=== PATIENT | male | born 1975 | race Caucasian/White ===

== ENCOUNTER 2019-03-22 13:01 | Emergency (ER) | payer SELFPAY ==
[2019-03-22 13:03] VITALS: BP 119/79; PULSE 95; RESP 15; TEMP 36.7; O2SAT 99; BMI 21.7
--- NOTE | 2019-03-22 13:22 | ED.DCSUM_ITS ---
- ER Visit Summary Date of Service: 03/22/19 Chief Complaint: Atraumatic left bicep pain History of Present Illness: The patient is a 43 M has medical history of asthma. Patient is right-hand dominant. He does a lot of of his arms, carrying and lifting things at work. States about an hour or 2 ago he developed pain in his left distal bicep. No fall no injury nor trauma. No prior history. No swelling or redness. Hurts to flex and extend his left arm. No fever, redness, swelling. No prior surgery to this arm. Physical Examination: Middle-aged male no acute distress vital signs are stable. He is afebrile he does not look septic or toxic. H EENT exam unremarkable. Neck nontender. Lungs clear to auscultation bilaterally. Heart regular rhythm no murmur. Abdomen soft nontender. Extremities he is moving all 4. Neurovascular intact. 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 Equal symmetrical radial pulses. Legs are unremarkable and nonswollen. His left shoulder wrist and hand are nontender neurovascular intact with normal technical product manager strength and radial pulse. There is no swelling of the forearm. He has normal touch sensation in his left hand. He has full flexion-extension the elbow. There is no swelling. No biceps tendon tear. He has tenderness and tenderness over his lateral biceps tendon distally. But he has full range of motion of the shoulder, elbow and wrist and hand. Exam is consistent with a biceps tendinitis. Test Results: None Emergency Department Course and Treatment: Motrin and discharge Treatment Plan: Ice. Rest. Motrin for pain and inflammation. Follow-up if not improving. Disposition: Discharge Impression: Left elbow distal biceps tendonitis This note was generated with [employer] dictation software. It may contain incorrect words, spelling, and punctuation that were not noted in review of the chart prior to signing ED Disposition - Plan for ED Patient: Referrals: Carlos Low DO [Primary Care Provider] -
--- NOTE | 2019-03-22 13:25 | ED.DEP ---
ED Disposition - Plan for ED Patient: Disposition: Home or Assisted Living Instructions: Tendonitis Referrals: Carlos Low DO [Primary Care Provider] - 1 Week if not improving Additional Instructions: Ice to your left elbow. Rest your arm. Motrin for pain and inflammation. 600 mg 3-4 times a day. You need to rest your arm this is inflammation of the biceps tendon and it will get better if rested along with ice and anti-inflammatories.
[2019-03-22] MEDS: Ibuprofen 400 MG Tablet 800 MG PO (13:52)
[2019-03-22 13:53] VITALS: RESP 16
== END 2019-03-22 13:53 | disposition home or self-care (01) ==
LOC: ED 13:29
PROVIDERS: Emergency Provider Emergency Medicine; Family Provider Family Medicine; PCP Family Medicine
DX: M75.22 Bicipital tendinitis, left shoulder (principal); J45.909 Unspecified asthma, uncomplicated
CPT/HCPCS: 99283

== ENCOUNTER 2019-05-06 04:14 | Emergency (ER) | payer SELFPAY ==
[2019-05-06 04:17] VITALS: BP 145/89; PULSE 91; RESP 16; TEMP 36.6; O2SAT 100; BMI 21.9
[2019-05-06 04:52] LABS: Absolute Lymphocyte Count 1.85 X10^3/uL (0.83-4.51); Absolute Neutrophil Count 6.5 X10^3/uL (2.0-7.7); Basophil# 0.04 X10^3/uL; Basophil% 0.4 % (0-1); Eosinophil# 0.21 X10^3/uL; Eosinophils% 2.2 % (0-5); Hemoglobin 16.1 g/dL (13.0-16.5); Lymphocyte # 1.85 X10^3/ul (4.0); Lymphocyte % 19.6 % (19-41); Mean Corp Hgb Conc 33.5 g/dL (32-36); Mean Corpuscular Hgb 29.5 pg (27.0-32.0); Mean Corpuscular Volume 88.1 fL (80-94); Mean Platelet Vol. 9.5 fl (6.2-12.0); Monocyte# 0.77 X10^3/uL; Monocyte% 8.2 % (0-10); NRBC Flagged by Analyzer 0 % (0-5); Neutrophil # 6.54 X10^3/uL (2.7-7.7); Neutrophil % 69.3 % (47-70); Platelet Count 257 K/mm3 (150-450); RBC Distribution Width CV 12.5 % (11.6-14.6); RBC Distribution Width SD 40.4 fl (35.1-43.9); Red Blood Count 5.45 M/mm3 (4.6-6.2); White Blood Count 9.4 K/mm3 (4.4-11.0)
[2019-05-06 05:03] LABS: Alcohol, Blood (Medical)-Serum < 3.0 mg/dL
[2019-05-06 05:10] LABS: AST(SGOT) 19 U/L (15-37); Alanine Aminotransfer ALT/SGPT 32 U/L (16-61); Albumin, Serum 4.1 g/dL (3.2-5.0); Alkaline Phosphatase 76 U/L (45-117); Anion Gap 4 (5-15); BUN 16 mg/dL (7-18); BUN/Creat Ratio 17.6 RATIO (10-20); Calcium,Total 8.8 mg/dL (8.5-10.1); Chloride 107 mmol/L (98-107); Creatinine, Serum 0.91 mg/dL (0.70-1.30); EST Glomerular Filtration Rate 95 mL/min (>60); Est Glom Filt Rate - Afr Amer 116 mL/min (>60); Estimated Creatinine Clearance 92.08 ml/min; Glucose 82 mg/dL (74-106); Potassium 3.5 mmol/L (3.5-5.1); Protein, Total 8.1 g/dL (6.4-8.2); Sodium Level 138 mmol/L (136-145)
[2019-05-06 05:15] VITALS: RESP 16
--- NOTE | 2019-05-06 05:17 | ED.RN ---
CALLED [facility]
--- NOTE | 2019-05-06 05:23 | ED.RN ---
JAMES CALLED AND IS ON THE WAY FROM [facility]
--- NOTE | 2019-05-06 05:44 | ED.RN ---
[facility] IN THE EMERGENCY ROOM
--- NOTE | 2019-05-06 05:45 | ED.VISSUMM ---
- ER Visit Summary Date of Service: 05/06/19 Chief Complaint: Suicidal ideation History of Present Illness: The patient is a 43 M who was brought to the ED by law enforcement. Patient has increasing depression symptoms. He feels like he would rather be . He says I wish God would take me. No plan or attempt. History of depression and asthma. He is not currently on any medications for depression and does not see a counselor or psychiatrist. Denies any medical complaints. Physical Examination: Afebrile and vital signs unremarkable. Poor eye contact and flat affect. Tearful. Heart regular. Lungs clear. Abdomen soft. Skin appears normal. Test Results: CBC, CMP, alcohol unremarkable. Tox screen is pending. Emergency Department Course and Treatment: Patient had a pink slip by law enforcement. He had suicide precautions here. Medical clearance testing was unremarkable. Tox screen is still pending. Patient will need psychiatric care and crisis was notified. Further disposition is pending. Treatment Plan: As above Disposition: Transfer pending Impression: 1. Suicidal ideation This note was generated with [employer] dictation software. It may contain incorrect words, spelling, and punctuation that were not noted in review of the chart prior to signing ED Disposition - Plan for ED Patient: Referrals: Tesfaye Gutierrez MD [Primary Care Provider] -
[2019-05-06 05:57] LABS: Amphetamine Urine VISTA POSITIVE (<1000 ng/mL); Barbiturate Urine VISTA NEGATIVE (< 200 ng/mL); Benzodiazepine Urine VISTA NEGATIVE (< 200 ng/mL); Cocaine Urine VISTA NEGATIVE (< 300 ng/mL); Ecstacy Urine VISTA NEGATIVE (< 500 ng/mL); Methadone Urine VISTA NEGATIVE (< 300 ng/mL); PCP Urine VISTA NEGATIVE (< 25 ng/mL); THC Urine VISTA POSITIVE (< 50 ng/mL); Vista UDS pH Range 6
[2019-05-06 06:00] VITALS: RESP 16
--- NOTE | 2019-05-06 07:06 | ED.DEP ---
ED Disposition - Plan for ED Patient: Instructions: CONTRACT, No Harm Referrals: Tesfaye Gutierrez MD [Primary Care Provider] -
== END 2019-05-06 07:18 | disposition home or self-care (01) ==
PROVIDERS: Emergency Provider Emergency Medicine; PCP Family Medicine
DX: R45.851 Suicidal ideations (principal); F32.9 Major depressive disorder, single episode, unspecified; J45.909 Unspecified asthma, uncomplicated
CPT/HCPCS: 36415; 80053; 80307; 80320; 85025; 99283; G0480

== ENCOUNTER 2019-05-06 09:27 | Emergency (ER) | payer SELFPAY ==
[2019-05-06] VITALS (17 sets, daily range): BP systolic 101–133; BP diastolic 76–108; PULSE 73–116; RESP 14–24; TEMP 36.6; O2SAT 96–99; BMI 21.9; BMI 25.0
--- NOTE | 2019-05-06 09:46 | ED.VISSUMM ---
- ER Visit Summary Date of Service: 05/06/19 Chief Complaint: Depressed and suicidal History of Present Illness: The patient is a 43 M patient denies any past medical or surgical history. States he seen in the emergency department earlier this morning. Had a work-up done for suicidal ideation. Was seen by the counseling center and our ER physician. It was determined that he was safe to contract for safety and was allowed to go home with close follow-up. Basically went home he and his significant other had an argument. She wanted him to leave her residence. He became emotional she like to bring him back to the emergency department and he threatened to jump out of the car. Police were called and he was brought in by the Police Department and now pink slipped. He denies having any prior psychiatric diagnoses. He denies being under any psychiatric care currently. He does have a history of both marijuana and meth abuse and last used methamphetamines 2 days ago. Physical Examination: Middle-aged man lying in bed vital signs are stable afebrile. He is tearful. Police are with him in the room. H EENT exam unremarkable. Neck nontender. Lungs has a prolonged expiratory phase and expiratory wheezing bilaterally. No rales nor rhonchi.. Heart regular rhythm rate about 115 no murmur. Abdomen soft nontender normal bowel sounds no peritoneal signs. Patient is moving all 4 extremities. No trauma or self-inflicted injuries. Back nontender. Skin no abscesses. No rashes. Neurologically is awake and alert with no focal motor deficits. Test Results: I reviewed his labs from earlier this morning. They are unremarkable except for positive tox screen. 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 Patient also has expiratory wheezing and will be treated with albuterol and DuoNeb aerosols along with receiving p.o. prednisone. Treatment Plan: [] Disposition: Transfer to a psychiatric facility Impression: Depression Suicidal ideation Acute asthma flare History of marijuana and methamphetamine abuse This note was generated with [employer] dictation software. It may contain incorrect words, spelling, and punctuation that were not noted in review of the chart prior to signing ED Disposition - Plan for ED Patient: Referrals: Tesfaye Gutierrez MD [Primary Care Provider] -
[2019-05-06] MEDS: predniSONE 20 MG Tablet 40 MG PO (10:04)
[2019-05-06] MEDS: Ipratropium/Albuterol Sulfate 3 ML AMPUL.NEB INHALATION (10:05)
[2019-05-06] MEDS: Albuterol 2.5 MG/3 ML VIAL.NEB. INHALATION ×2 (10:09→23:01)
--- NOTE | 2019-05-06 10:19 | CM.ED ---
Social Work Consult: Suicidal Informant: Dr. Balderrama. Patient is self-pay, confirmed by registration, unable to facilitate placement. Dr. Balderrama is recommending placement for patient due to second visit this day due mental health reasons. Crisis did assess patient earlier this morning and patient did contract for safety at that time. Patient noted to be homeless but was staying with girlfriend. Telephone call to An[facility]. Updated Ange on patient status and recommendation for placement for patient. [facility] also aware that patient is self-pay. Crisis to complete placement. Medical team updated and agreeable to plan. Mariah Estrella MSW, KAJAL
[2019-05-06] MEDS: Ziprasidone IM 20 MG/ML VIAL IM (10:59)
--- NOTE | 2019-05-06 11:02 | NURSING ---
PT BECAME UPSET, YELLING OUT AFTER BEING TOLD HE WOULD BE PLACED IN A PSYCH FACILITY. PT CALLING EX-GIRLFRIEND AND ARGUING SO PHONE REMOVED AT THIS TIME SO PT ABLE TO CALM DOWN. SITTER AND SECURITY AT BS. PT NOT UNCOOPERATIVE, BUT TEARFUL AND VERBALIZING DISPLEASURE WITH SITUATION.
--- NOTE | 2019-05-06 13:50 | EKG12_ITS ---
Test Reason : MENTAL HEALTH Blood Pressure : / mmHG Vent. Rate : 073 BPM Atrial Rate : 073 BPM P-R Int : 152 ms QRS Dur : 092 ms QT Int : 374 ms P-R-T Axes : 075 050 070 degrees QTc Int : 412 ms Normal sinus rhythm Normal ECG Confirmed by BERNARDO GRIFFITH, COURTNEY ([id number]), staff editor TAYE HAYWOOD ([id number]) on 05/09/2019 12:26:30 PM Referred By: ADRIAN Confirmed By:COURTNEY CHANG MD
[2019-05-07] VITALS (15 sets, daily range): BP systolic 114–137; BP diastolic 74–88; PULSE 64–91; RESP 14–24; O2SAT 93–99
[2019-05-07] MEDS: predniSONE 20 MG Tablet 40 MG PO (09:04)
[2019-05-07] MEDS: Ipratropium/Albuterol Sulfate 3 ML AMPUL.NEB INHALATION (09:05)
--- NOTE | 2019-05-07 09:38 | ED.RN ---
KATHLEEN COSTELLO WITH CRISIS PT IS ACCEPTED AT [facility] AND SHOULD HAVE A BED SOME TIME TODAY
--- NOTE | 2019-05-07 12:02 | ED.RN ---
SPOKE WITH PRAVIN AT [facility]; SHE STATED THAT NOTHING HAS CHANGED. WE ARE STILL WAITING ON A BED
--- NOTE | 2019-05-07 12:36 | ED.RN ---
KATHLEEN COSTELLO WITH [facility]ISIS; PT HAS A BED WITH [facility] BUT THEY ARE WAITING ON A PT TO ARRIVE THAT WAS SUPPOSE TO BE THERE AT 0900. SOON THEY LOCATED/RECEIVE PT THEY WILL LET US KNOW THAT IT IS OK TO SENT THE PT.
--- NOTE | 2019-05-07 14:32 | ED.RN ---
SPOKE WITH PRAVIN AGAIN SHE SAID SHE TALKED TO [facility] ABOUT 15 MINUTES AGO AND THEY HAVE NOT RESOLVED ISSUE, STATED IN PREVIOUS NOTES
== END 2019-05-07 18:24 ==
PROVIDERS: Emergency Provider Emergency Medicine; PCP Family Medicine
DX: F32.9 Major depressive disorder, single episode, unspecified (principal); R45.851 Suicidal ideations; F15.10 Other stimulant abuse, uncomplicated; J45.909 Unspecified asthma, uncomplicated
CPT/HCPCS: 93005; 94640; 96372; 99283; J3486

== ENCOUNTER 2021-02-10 21:12 | Inpatient (IN) | payer OTHER, SELFPAY ==
[2021-02-10] VITALS (13 sets, daily range): BP systolic 100–192; BP diastolic 68–159; PULSE 105–167; RESP 10–41; TEMP 36.2–37.2; O2SAT 96–100; BMI 21.4
[2021-02-10] MEDS: Etomidate 20 MG/10 ML Vial IV (21:16)
--- NOTE | 2021-02-10 21:20 | RAD_ITS ---
STUDY: X-RAY CHEST REASON FOR EXAM: Male, 45 years old. Endotracheal tube TECHNIQUE: AP COMPARISON: Subsequent chest radiographs. FINDINGS: Endotracheal tube tip high at the level of T2 (subsequent radiographs show it has been advanced). Enteric tube extends into the stomach and off the film. No apparent pneumothorax, pneumonia, pleural effusion, or edema. Cardiac silhouette, rich and mediastinal contours are within normal limits. No acute osseous abnormality. No evidence of free air under the diaphragm. RAD/Chest 1 View (Portable) IMPRESSION: Endotracheal tube tip high at the level of T2 (subsequent radiographs show it has been advanced). Enteric tube extends into the stomach and off the film. Electronically Signed: Juanito Sexton MD at 22:50 EDT Tel , Service support ,
--- NOTE | 2021-02-10 21:22 | EKG12_ITS ---
Test Reason : REPEAT Blood Pressure : / mmHG Vent. Rate : 118 BPM Atrial Rate : 118 BPM P-R Int : 154 ms QRS Dur : 092 ms QT Int : 336 ms P-R-T Axes : 085 091 077 degrees QTc Int : 470 ms Sinus tachycardia Low voltage QRS (Limb Leads) Poor R wave progression Confirmed by SOILA GRIFFITH, TASIA ([id number]), film or videotape editor GUILLERMO HESS ([id number]) on 02/12/2021 9:47:44 AM Referred By: KARINA Confirmed By:TASIA CM MD
--- NOTE | 2021-02-10 21:23 | EKG12_ITS ---
Test Reason : CODE Blood Pressure : / mmHG Vent. Rate : 153 BPM Atrial Rate : 082 BPM P-R Int : 000 ms QRS Dur : 092 ms QT Int : 276 ms P-R-T Axes : 000 096 067 degrees QTc Int : 440 ms Atrial fibrillation Low voltage QRS (Limb Leads) Poor R wave progression Abnormal ECG Confirmed by SOILA GRIFFITH, TASIA ([id number]), copy editor GUILLERMO HESS ([id number]) on 02/12/2021 9:50:29 AM Referred By: KARINA Confirmed By:TASIA CM MD
[2021-02-10] MEDS: Propofol 200 MG/20 ML Vial 50 MG IV BOLUS (21:25)
[2021-02-10 21:30] LABS: Absolute Lymphocyte Count 5.66 X10^3/uL (0.83-4.51); Absolute Neutrophil Count 5.7 X10^3/uL (2.0-7.7); Basophil# 0.02 X10^3/uL; Basophil% 0.2 % (0-1); Eosinophil# 0.39 X10^3/uL; Hematocrit 48.5 % (40-54); Hemoglobin 15.2 g/dL (13.0-16.5); Lymphocyte # 5.66 X10^3/ul (0.83-4.51); Lymphocyte % 43.5 % (19-41); Mean Corp Hgb Conc 31.3 g/dL (32-36); Mean Corpuscular Hgb 29.9 pg (27.0-32.0); Mean Corpuscular Volume 95.5 fL (80-94); Mean Platelet Vol. 10.5 fl (6.2-12.0); Monocyte# 1.22 X10^3/uL; Monocyte% 9.4 % (0-10); NRBC Flagged by Analyzer 0 % (0-5); Neutrophil % 43.7 % (47-70); POSITIVE DIFFERENTIAL YES; POSITIVE MORPHOLOGY YES; Platelet Count 285 K/mm3 (150-450); RBC Distribution Width CV 13.2 % (11.6-14.6); RBC Distribution Width SD 46.5 fl (35.1-43.9); Red Blood Count 5.08 M/mm3 (4.6-6.2)
[2021-02-10] MEDS: Propofol 10MG/Ml 1,000 MG/100 ML Bottle 3.7 MG CONT INF (21:33)
[2021-02-10 21:38] LABS: Differential Indicated SCAN CRITERIA MET
[2021-02-10] MEDS: Propofol 200 MG/20 ML Vial 60 MG IV BOLUS (21:46)
[2021-02-10 21:47] LABS: International Normalized Ratio 1.2; Partial Thromboplast Time 29.2 Seconds (24.1-36.2); Prothrombin Time (Protime)PT. 14.9 SECONDS (11.7-14.9)
[2021-02-10] MEDS: LORazepam 2 MG/ML Syringe IV ×4 (21:47→23:45)
[2021-02-10] MEDS: Albuterol 2.5 MG/3 ML VIAL.NEB. INHALATION ×3 (21:48)
[2021-02-10] MEDS: MethylPREDNISolone 125 MG/2 ML Vial IV (21:52)
[2021-02-10 21:53] LABS: AST(SGOT) 30 U/L (15-37); Alanine Aminotransfer ALT/SGPT 29 U/L (16-61); Albumin, Serum 3.8 g/dL (3.2-5.0); Alkaline Phosphatase 76 U/L (45-117); Anion Gap 16 (5-15); BUN 13 mg/dL (7-18); BUN/Creat Ratio 10.2 RATIO (10-20); Bilirubin, Direct 0.13 mg/dL (0.00-0.30); Calcium,Total 8.8 mg/dL (8.5-10.1); Chloride 108 mmol/L (98-107); Creatinine, Serum 1.27 mg/dL (0.70-1.30); EST Glomerular Filtration Rate 65 mL/min (>60); Est Glom Filt Rate - Afr Amer 78 mL/min (>60); Estimated Creatinine Clearance 63.16 ml/min; Glucose 177 mg/dL (74-106); Potassium 4.3 mmol/L (3.5-5.1); Protein, Total 7.8 g/dL (6.4-8.2); Sodium Level 145 mmol/L (136-145); Troponin-I HS 4 pg/mL (3.0-78.0)
--- NOTE | 2021-02-10 22:02 | RAD_ITS ---
INDICATION: ett tube EXAMINATION/TECHNIQUE: X-RAY - XR Chest 1 View COMPARISON: 02/10/2021. FINDINGS: The lungs are clear. The cardiomediastinal silhouette is unremarkable. Slight interval advancement of endotracheal tube with tip now 8 cm above the sona. Unchanged position of NG tube. No pleural effusion or pneumothorax. No acute osseous abnormalities. RAD/Chest 1 View (Portable) IMPRESSION: Slight interval advancement of endotracheal tube with tip now 8 cm above the sona. Otherwise stable exam. Electronically Signed: Polo Cunningham MD at 22:34 EDT Tel , Service support ,
--- NOTE | 2021-02-10 22:04 | EDS_ITS ---
HPI History of Present Illness Chief Complaint: Shortness of Breath Informant: EMS Onset/Context/Timing Onset: Today Narrative Narrative: Patient presents via EMS following a respiratory arrest. EMS was called for asthma exacerbation. On arrival they found the patient sitting outside on a bench in respiratory distress. They placed a nonrebreather and the patient slumped forward falling to the ground. No pulse was found and patient was noted to be in asystole. CPR was started. They began bagging the patient with an Ambu bag. After just a minute or so patient regained a pulse. They continued bagging with Ambu bag in route to the hospital. EMS states that bystanders note the patient reportedly gave Covid to his sister although patient never been tested. They do not know much of his medical history. PFSH PFS Medical History Asthma Medical History unable to obtain Home Medications albuterol sulfate 1 - 2 puff INHALATION Q4H PRN PRN 03/22/19 [History Last Taken Unknown] Allergy/AdvReac Type Severity Reaction Status Date / Time cat dander Allergy Itching Verified 02/10/21 21:36 Surgical History unable to obtain Social History Smoking Status: Current every day smoker tobacco type: cigarettes ROS ROS ED Review of Systems ROS Unobtainable: due to endotracheal tube EXAM Physical Exam Const Vital Signs: 02/10/21 21:13 02/10/21 21:20 02/10/21 21:21 Temperature 97.2 F L 97.2 F L Temperature Source Temporal Temporal Pulse Rate 137 H 137 H Respiratory Rate 12 12 Respiratory Effort Mechanically Ventilated Blood Pressure 189/109 H 189/109 H Blood Pressure Mean 135 135 Pulse Ox 98 98 Oxygen Delivery Method Ambu-Bag Ambu-Bag Fraction of Inspired Oxygen (FIO2) 02/10/21 21:30 02/10/21 21:50 02/10/21 22:13 Temperature Temperature Source Pulse Rate 151 H 167 H 167 H Respiratory Rate 26 H 20 H 27 H Respiratory Effort Blood Pressure 192/159 H 100/68 Blood Pressure Mean 170 78 Pulse Ox 98 99 100 Oxygen Delivery Method Mechanical Ventilator Mechanical Ventilator Fraction of Inspired Oxygen (FIO2) 60 02/10/21 22:23 02/10/21 22:34 02/10/21 22:35 Temperature Temperature Source Pulse Rate 167 H 152 H Respiratory Rate 41 H 26 H Respiratory Effort Blood Pressure 125/83 H Blood Pressure Mean 97 Pulse Ox 100 100 Oxygen Delivery Method Fraction of Inspired Oxygen (FIO2) 50 50 02/10/21 22:57 Temperature 98.1 F Temperature Source Core Pulse Rate 112 H Respiratory Rate 25 H Respiratory Effort Blood Pressure 120/83 H Blood Pressure Mean 95 Pulse Ox 100 Oxygen Delivery Method Mechanical Ventilator Fraction of Inspired Oxygen (FIO2) Positive well nourished and well developed General Appearance ED: well developed HEENT Reports moist mucous membranes Negative for trauma Neck supple Chest Wall inspection of chest normal and palpation of chest normal Resp Resp Narrative: Decreased air movement throughout. Cardio Rate: tachycardic Extremity normal to inspection Neuro Neuro Narrative: Unresponsive on arrival. Some movement noted to the left arm. Skin no rashes or lesions noted MDM MDM MDM Narrative Medical decision making narrative: Patient was intubated on arrival to the emergency room. Vocal cords were visualized using glide scope with passage of a 7.5 ET tube. Patient had been given etomidate and succinylcholine for intubation. EKG, chest x-ray, lab work all ordered. Lab Data Attestation: I reviewed the patient's lab results. Labs: Laboratory Results - last 24 hr 02/10/21 02/10/21 02/10/21 21:15 21:15 21:15 WBC 13.0 H RBC 5.08 Hgb 15.2 Hct 48.5 MCV 95.5 H MCH 29.9 MCHC 31.3 L RDW Std Deviation 46.5 H RDW Coeff of Gisela 13.2 Plt Count 285 MPV 10.5 Immature Gran % (Auto) 0.200 Neut % (Auto) 43.7 L Lymph % (Auto) 43.5 H [place] % (Auto) 9.4 Eos % (Auto) 3.0 Baso % (Auto) 0.2 Absolute Neuts (auto) 5.7 Absolute Lymphs (auto) 5.66 H Nucleated RBC % 0 Differential Comment SCANNED PT 14.9 INR 1.2 APTT 29.2 Sodium 145 Potassium 4.3 Chloride 108 H Carbon Dioxide 21.0 Anion Gap 16 H BUN 13 Creatinine 1.27 Estim Creat Clear Calc 63.16 Est GFR (MDRD) Af Amer 78 Est GFR (MDRD) Non-Af 65 BUN/Creatinine Ratio 10.2 Glucose 177 H Lactic Acid Calcium 8.8 Total Bilirubin 0.40 Direct Bilirubin 0.13 AST 30 ALT 29 Alkaline Phosphatase 76 Troponin I High Sens 4 Total Protein 7.8 Albumin 3.8 Globulin 4.0 Urine Opiates Screen Urine Methadone Screen Ur Barbiturates Screen Ur Phencyclidine Scrn Ur Amphetamines Screen U Methamphetamin-MDMA U Benzodiazepines Scrn Urine Cocaine Screen U Cannabinoids Screen Ur Drug Screen Comment Ethyl Alcohol 02/10/21 02/10/21 02/10/21 21:15 21:15 22:12 WBC RBC Hgb Hct MCV MCH MCHC RDW Std Deviation RDW Coeff of Gisela Plt Count MPV Immature Gran % (Auto) Neut % (Auto) Lymph % (Auto) [place] % (Auto) Eos % (Auto) Baso % (Auto) Absolute Neuts (auto) Absolute Lymphs (auto) Nucleated RBC % Differential Comment PT INR APTT Sodium Potassium Chloride Carbon Dioxide Anion Gap BUN Creatinine Estim Creat Clear Calc Est GFR (MDRD) Af Amer Est GFR (MDRD) Non-Af BUN/Creatinine Ratio Glucose Lactic Acid 15.0 H* Calcium Total Bilirubin Direct Bilirubin AST ALT Alkaline Phosphatase Troponin I High Sens Total Protein Albumin Globulin Urine Opiates Screen NEGATIVE Urine Methadone Screen NEGATIVE Ur Barbiturates Screen NEGATIVE Ur Phencyclidine Scrn NEGATIVE Ur Amphetamines Screen NEGATIVE U Methamphetamin-MDMA NEGATIVE U Benzodiazepines Scrn NEGATIVE Urine Cocaine Screen NEGATIVE U Cannabinoids Screen POSITIVE H Ur Drug Screen Comment Ethyl Alcohol 5.0 ABG Data ABG results: ABG 02/10/21 21:20 Specimen Type ART Sample Site L Radial pH 7.20 L Bicarbonate Actual 24.0 Total CO2 26 Base Excess -4 L O2 Saturation 100 H O2 % 60 ABG pCO2 61.8 H ABG pO2 301 H* Dagoberto Test Positive Respiration Rate 10 O2 Delivery Device Adult Vent Vent Mode AC Tidal Volume 400 POC PEEP 5 Crit Call To/Read Back Yes Blood Gas Notified Whom VIEYRA Radiography Diagnostic Testing: Clinical Impression(s) from Imaging Studies Chest X-Ray 02/10/21 21:20 IMPRESSION: Endotracheal tube tip high at the level of T2 (subsequent radiographs show it has been advanced). Enteric tube extends into the stomach and off the film. Electronically Signed: Juanito Sexton MD at 22:50 EDT Tel , Service support , Chest X-Ray 02/10/21 22:02 IMPRESSION: Slight interval advancement of endotracheal tube with tip now 8 cm above the sona. Otherwise stable exam. Electronically Signed: Polo Cunningham MD at 22:34 EDT Tel , Service support , Chest X-Ray 02/10/21 22:08 IMPRESSION: The endotracheal tube tip is more distal in the trachea, now in the mid thoracic trachea about 6 cm above the sona. Electronically Signed: Juanito Sexton MD at 22:52 EDT Tel , Service support , EKG Initial EKG: Attestation: I personally reviewed and interpreted this EKG as follows: Interpretation: Atrial Fibrillation (Atrial fibrillation at 153. No significant ST change.) Follow-up EKG: Attestation: I personally reviewed and interpreted this EKG as follows: Interpretation: Sinus Tachycardia (Sinus tach at 118 with no acute ischemia.) Treatment and Re-Evaluation Comments:: Patient was initially placed on propofol drip for sedation. 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 In light of this, sedation will be switched to Versed and fentanyl. Initial chest x-ray shows ET tube to be high in the trachea. This is advanced and repeat x-rays reviewed by myself. ET tube appears to be in good position on final x-ray. No evidence of pneumo thorax or infiltrate. Blood work reviewed and reveals a white count of 13. Coags normal. Chemistry studies remarkable only for glucose of 177. LFTs unremarkable. Troponin normal at 4. Lactic acid is 15. Patient's heart rate is currently in the 1 teens. He does have new onset atrial fibrillation noted. I will speak with hospitalist regarding admission. Addendum: Repeat EKG obtained at this time reveals sinus tachycardia at 118. No acute ST change. Critical Care Time Critical Care Time: Yes Critical care time (excluding procedures): 30-74 minutes (45 minutes), Including time spent:, Discussing w/Consultants, Arranging Admission or Transfer and Performing Direct Patient Care at Bedside Discharge Plan Dx/Rx/DC Orders Clinical Impression: Respiratory arrest, New onset a-fib, Lactic acidosis Disposition Disposition: Acute Care Hospital [facility]
--- NOTE | 2021-02-10 22:08 | RAD_ITS ---
STUDY: X-RAY CHEST REASON FOR EXAM: Male, 45 years old. ETT TECHNIQUE: AP COMPARISON: Earlier same date FINDINGS: The endotracheal tube tip is more distal in the trachea, now in the mid thoracic trachea about 6 cm above the sona. Lung bases not included on this study. No apparent pneumothorax or other acute interval change. The enteric tube extends inferiorly off the film. RAD/Chest 1 View (Portable) IMPRESSION: The endotracheal tube tip is more distal in the trachea, now in the mid thoracic trachea about 6 cm above the sona. Electronically Signed: Juanito Sexton MD at 22:52 EDT Tel , Service support ,
--- NOTE | 2021-02-10 22:10 | ED.RN ---
Chest xray for confirmation of tube placement, tube advanced to 26 at lip
[2021-02-10 22:12] LABS: Differential Comment SCANNED
[2021-02-10 22:25] LABS: Allen Test Positive; Base Excess -4 mmol/L (-2 to +2); Blood Gas Specimen Type ART; FI02 60; Mode AC; O2 Delivery Device Adult Vent; PEEP 5; PO2 301 mmHG (75-100); RR 10; SITE L Radial; SO2 100 % (95-99); Total Carbon Dioxide 26 mmol/L; Vt 400; pCO2 61.8 mmHg (35-45)
[2021-02-10 22:44] LABS: Amphetamine Urine VISTA NEGATIVE (<1000 ng/mL); Barbiturate Urine VISTA NEGATIVE (< 200 ng/mL); Benzodiazepine Urine VISTA NEGATIVE (< 200 ng/mL); Cocaine Urine VISTA NEGATIVE (< 300 ng/mL); Ecstacy Urine VISTA NEGATIVE (< 500 ng/mL); Methadone Urine VISTA NEGATIVE (< 300 ng/mL); PCP Urine VISTA NEGATIVE (< 25 ng/mL); THC Urine VISTA POSITIVE (< 50 ng/mL); Vista UDS pH Range 5
--- NOTE | 2021-02-10 23:41 | HP.PCM.HOS_ITS ---
HPI - General General Date of Admission: 02/10/21 HPI Narrative History was taken for emergent department of that patient was on mechanical ventilation; sedated but agitated. DARIEN PIERRE, is a 45 M with a significant history of asthma who presents to the emergency department with cardiac and respiratory arrest. Reportedly EMS was called because patient was having shortness of breath. EMS placed a nonrebreather mask and then patient slumped over. Patient lost his pulse and respiration and patient was found to be in asystole. CPR was done for about 2 minutes and ROSC was achieved. At emergent department patient was intubated. Initially patient was placed on propofol but reportedly patient was agitated while on propofol so he was placed on Versed and fentanyl. Reportedly bystanders reported that patient recently had giving his sister Covid. However rapid Covid antigen at the emergency department was negative. Emergency department doctor reportedly called an independent living facility where patient lives. The independent living facility did not have any medical information on patient. [facility] Medical History Asthma Medical History unable to obtain Home Medications albuterol sulfate 1 - 2 puff INHALATION Q4H PRN PRN 03/22/19 [History Last Taken Unknown] Allergy/AdvReac Type Severity Reaction Status Date / Time cat dander Allergy Itching Verified 02/10/21 21:36 Family History unable to obtain unable to obtain Surgical History unable to obtain unable to obtain Social History Smoking Status: Current every day smoker tobacco type: cigarettes ROS Review of Systems ROS Unobtainable: due to encephalopathy Vital Signs Vital Signs Vital Signs: 02/10/21 21:13 02/10/21 21:20 02/10/21 21:21 Temperature 97.2 F L 97.2 F L Temperature Source Temporal Temporal Pulse Rate 137 H 137 H Respiratory Rate 12 12 Respiratory Effort Mechanically Ventilated Blood Pressure 189/109 H 189/109 H Blood Pressure Mean 135 135 Pulse Ox 98 98 Oxygen Delivery Method Ambu-Bag Ambu-Bag Fraction of Inspired Oxygen (FIO2) 02/10/21 21:30 02/10/21 21:50 02/10/21 22:13 Temperature Temperature Source Pulse Rate 151 H 167 H 167 H Respiratory Rate 26 H 20 H 27 H Respiratory Effort Blood Pressure 192/159 H 100/68 Blood Pressure Mean 170 78 Pulse Ox 98 99 100 Oxygen Delivery Method Mechanical Ventilator Mechanical Ventilator Fraction of Inspired Oxygen (FIO2) 60 02/10/21 22:20 02/10/21 22:23 02/10/21 22:34 Temperature 97.8 F Temperature Source Core Pulse Rate 159 H 167 H Respiratory Rate 31 H 41 H Respiratory Effort Blood Pressure 115/92 H 125/83 H Blood Pressure Mean 99 97 Pulse Ox 100 100 Oxygen Delivery Method Mechanical Ventilator Fraction of Inspired Oxygen (FIO2) 50 02/10/21 22:35 02/10/21 22:45 02/10/21 22:57 Temperature 98.1 F Temperature Source Core Pulse Rate 152 H 150 H 112 H Respiratory Rate 26 H 36 H 25 H Respiratory Effort Blood Pressure 152/89 H 120/83 H Blood Pressure Mean 110 95 Pulse Ox 100 100 100 Oxygen Delivery Method Mechanical Ventilator Mechanical Ventilator Fraction of Inspired Oxygen (FIO2) 50 02/10/21 23:15 02/10/21 23:30 Temperature Temperature Source Pulse Rate 109 H 108 H Respiratory Rate 22 H 26 H Respiratory Effort Blood Pressure 119/75 137/97 H Blood Pressure Mean 89 110 Pulse Ox 100 100 Oxygen Delivery Method Mechanical Ventilator Mechanical Ventilator Fraction of Inspired Oxygen (FIO2) Weight Weight: 62.1 kg Body Mass Index (BMI) 21.4 Physical Exam Narrative Physical exam: General: Well-nourished, well-developed. Head: Normocephalic, atraumatic, no tenderness Eyes: PERRLA ENT, no trauma, moist mucous membranes, endotracheal tube in place. Neck: Nontender, full range of motion, no spinal tenderness, deformities, step- off CVS: Tachycardia. S1-S2 present. No murmur, gallop or rub. Respiratory : Tachypnea clear to auscultation bilaterally, chest wall nontender, no wheezing Abdomen: Soft, nontender, nondistended, normal bowel sounds, no masses : Deferred Back: Nontender, no CVA tenderness, no midline spinal tenderness, deformities, step-offs Extremities: Nontender full range of motion, no trauma Skin: Normal color, no trauma, abrasions Neuro: Intubated with sedation on mechanical ventilation the patient is agitated. Psychiatry: Intubated with sedation on mechanical ventilation the patient is agitated. Results Lab / Micro Data Result Diagrams: 02/10/21 21:15 02/10/21 21:15 Labs: Laboratory Results - last 24 hr 02/10/21 21:15: WBC 13.0 H, RBC 5.08, Hgb 15.2, Hct 48.5, MCV 95.5 H, MCH 29.9, MCHC 31.3 L, RDW Std Deviation 46.5 H, RDW Coeff of Gisela 13.2, Plt Count 285, MPV 10.5, Immature Gran % (Auto) 0.200, Neut % (Auto) 43.7 L, Lymph % (Auto) 43.5 H, Bates % (Auto) 9.4, Eos % (Auto) 3.0, Baso % (Auto) 0.2, Absolute Neuts (auto) 5.7, Absolute Lymphs (auto) 5.66 H, Nucleated RBC % 0, Differential Comment SCANNED 02/10/21 21:15: PT 14.9, INR 1.2, APTT 29.2 02/10/21 21:15: Sodium 145, Potassium 4.3, Chloride 108 H, Carbon Dioxide 21.0, Anion Gap 16 H, BUN 13, Creatinine 1.27, Estim Creat Clear Calc 63.16, Est GFR (MDRD) Af Amer 78, Est GFR (MDRD) Non-Af 65, BUN/Creatinine Ratio 10.2, Glucose 177 H, Calcium 8.8, Total Bilirubin 0.40, Direct Bilirubin 0.13, AST 30, ALT 29, Alkaline Phosphatase 76, Troponin I High Sens 4, Total Protein 7.8, Albumin 3.8, Globulin 4.0 02/10/21 21:15: Ethyl Alcohol 5.0 02/10/21 21:15: Lactic Acid 15.0 H* 02/10/21 22:12: Urine Opiates Screen NEGATIVE, Urine Methadone Screen NEGATIVE, Ur Barbiturates Screen NEGATIVE, Ur Phencyclidine Scrn NEGATIVE, Ur Amphetamines Screen NEGATIVE, U Methamphetamin-MDMA NEGATIVE, U Benzodiazepines Scrn NEGATIVE, Urine Cocaine Screen NEGATIVE, U Cannabinoids Screen POSITIVE H, Ur Drug Screen Comment Micro: Microbiology 02/10/21 21:36 Nasal Secretion SARS-CoV-2 Antigen (Rapid) - Final ABG Data ABG results: ABG 02/10/21 21:20 Specimen Type ART Sample Site L Radial pH 7.20 L Bicarbonate Actual 24.0 Total CO2 26 Base Excess -4 L O2 Saturation 100 H O2 % 60 ABG pCO2 61.8 H ABG pO2 301 H* Dagoberto Test Positive Respiration Rate 10 O2 Delivery Device Adult Vent Vent Mode AC Tidal Volume 400 POC PEEP 5 Crit Call To/Read Back Yes Blood Gas Notified Whom JARRELL Radiology Impression Chest X-Ray 02/10/21 21:20 IMPRESSION: Endotracheal tube tip high at the level of T2 (subsequent radiographs show it has been advanced). Enteric tube extends into the stomach and off the film. Electronically Signed: Juanito Sexton MD at 22:50 EDT Tel , Service support , Chest X-Ray 02/10/21 22:02 IMPRESSION: Slight interval advancement of endotracheal tube with tip now 8 cm above the sona. Otherwise stable exam. Electronically Signed: Polo Cunningham MD at 22:34 EDT Tel , Service support , Chest X-Ray 02/10/21 22:08 IMPRESSION: The endotracheal tube tip is more distal in the trachea, now in the mid thoracic trachea about 6 cm above the sona. Electronically Signed: Juanito Sexton MD at 22:52 EDT Tel , Service support , Assessment & Plan Assessment/Plan (1) Respiratory arrest: (2) New onset a-fib: (3) Lactic acidosis: PLAN: Acute respiratory failure. Chest x-ray independently interpreted did not show any acute cardiopulmonary process. I agree with radiologist interpretation. Reportedly patient was unable to breathe and required airway protection and ventilation. Continue mechanical ventilation and admit patient to the intensive care unit. Solu-Medrol [id number]. Scheduled DuoNeb and as needed ordered. Check magnesium and phosphorus. Review of CBC showed white count of 13. ABG reviewed showed a pH of 7.2. PCO2 of 16.8. Cannot rule out status asthmaticus. However with asthma alkalemia is more common. Toxicology was positive only for cannabinoids. Trend CBC and BMP. Storage Facility Rental Clerk consult. Lactic acidosis Likely secondary to hypoxia Trend. New diagnosis A. fib. Patient found to be in A. fib with rapid ventricular response. EKG showed A. fib with ventricular rate of 158. Follow-up EKG shows sinus tach with rate of 118. Her medical information so far [id number] 2 score is 0 We will check TSH. Potassium is 4.3. Check magnesium. Trend BMP. DVT prophylaxis: Subcutaneous Lovenox ordered. Charges/Coding Visit Charges Inpatient E&M: 94534 Init Hosp L3
[2021-02-11] VITALS (44 sets, daily range): BP systolic 88–132; BP diastolic 59–73; PULSE 81–132; RESP 10–22; TEMP 36.4–37.4; O2SAT 91–100; BMI 21.7
[2021-02-11 00:25] LABS: Magnesium 3.1 mg/dL (1.6-2.6); Phosphorus 8.6 mg/dL (2.5-4.9)
[2021-02-11 00:34] LABS: CPK Total, Creatine Kinase 882 U/L (39-308); Triglycerides 274 mg/dL
[2021-02-11] MEDS: Midazolam 2 MG/2 ML Syringe IV (00:46)
[2021-02-11] MEDS: Albuterol 2.5 MG/3 ML VIAL.NEB. INHALATION (01:20)
[2021-02-11] MEDS: Propofol 10MG/Ml 1,000 MG/100 ML Bottle 11.2 MG CONT INF (01:22)
[2021-02-11 01:24] LABS: Reflex Lactate? Y
[2021-02-11 01:46] LABS: Allen Test Positive; Base Excess 0 mmol/L (-2 to +2); Bicarbonate 25.6 mmol/L (22-26); Blood Gas Specimen Type ART; FI02 35; Mode AC; O2 Delivery Device Adult Vent; PEEP 5; PO2 140 mmHG (75-100); RR 10; SITE L Radial; SO2 99 % (95-99); Total Carbon Dioxide 27 mmol/L; Vt 400; pCO2 45.9 mmHg (35-45); pH 7.36 (7.35-7.45)
[2021-02-11 02:22] LABS: Absolute Lymphocyte Count 0.31 X10^3/uL (0.83-4.51); Absolute Neutrophil Count 12.9 X10^3/uL (2.0-7.7); Basophil# 0.01 X10^3/uL; Basophil% 0.1 % (0-1); Eosinophil# 0.01 X10^3/uL; Eosinophils% 0.1 % (0-5); Hematocrit 39.2 % (40-54); Hemoglobin 13.2 g/dL (13.0-16.5); Lymphocyte # 0.31 X10^3/ul (0.83-4.51); Lymphocyte % 2.3 % (19-41); Mean Corp Hgb Conc 33.7 g/dL (32-36); Mean Corpuscular Hgb 29.7 pg (27.0-32.0); Mean Corpuscular Volume 88.3 fL (80-94); Mean Platelet Vol. 9.9 fl (6.2-12.0); Monocyte# 0.15 X10^3/uL; Monocyte% 1.1 % (0-10); NRBC Flagged by Analyzer 0 % (0-5); Neutrophil # 12.94 X10^3/uL (2.7-7.7); Neutrophil % 95.8 % (47-70); POSITIVE DIFFERENTIAL YES; Platelet Count 197 K/mm3 (150-450); RBC Distribution Width CV 13.2 % (11.6-14.6); RBC Distribution Width SD 42.7 fl (35.1-43.9); Red Blood Count 4.44 M/mm3 (4.6-6.2); White Blood Count 13.5 K/mm3 (4.4-11.0)
[2021-02-11 02:28] LABS: Differential Indicated SCAN CRITERIA MET
[2021-02-11 02:42] LABS: Anion Gap 7 (5-15); BUN 15 mg/dL (7-18); BUN/Creat Ratio 16.4 RATIO (10-20); Calcium,Total 7.6 mg/dL (8.5-10.1); Chloride 109 mmol/L (98-107); Creatinine, Serum 0.92 mg/dL (0.70-1.30); EST Glomerular Filtration Rate 94 mL/min (>60); Est Glom Filt Rate - Afr Amer 114 mL/min (>60); Estimated Creatinine Clearance 88.17 ml/min; Glucose 148 mg/dL (74-106); Potassium 3.5 mmol/L (3.5-5.1); Sodium Level 142 mmol/L (136-145); Thyroid Stim Hormone (TSH) 0.56 uIU/mL (0.358-3.74)
--- NOTE | 2021-02-11 03:10 | NURSING ---
PANDEMIC DOCUMENTATION DATE 02/11/21 TIME 0053
[2021-02-11 03:13] LABS: Lactic Acid 1.5 mmol/L (0.4-1.9)
[2021-02-11] MEDS: Ipratropium/Albuterol Sulfate 3 ML AMPUL.NEB INHALATION ×5 (04:50→23:31)
--- NOTE | 2021-02-11 06:41 | CON.PCM.CC_ITS ---
Assessment & Plan Assessment/Plan (1) Acute respiratory failure with hypoxia and hypercapnia: PLAN: RECOMMENDATIONS: 1. Continue patient on assist control mode mechanical ventilation. Wean FiO2 and PEEP as tolerated. 2. Continue scheduled bronchodilator therapy and IV steroids. 3. Continue propofol and fentanyl for sedation. Discontinue Versed infusion. 4. Obtain respiratory viral panel. 5. Obtain CTA chest. 6. Continue appropriate ICU prophylaxis. IMPRESSIONS: 1. Acute combined respiratory failure Unclear precipitating etiology. Per documentation, the patient has a history of asthma, but appears to only be prescribed albuterol on an outpatient basis. His medical history is not entirely known. Given his questionable medical history and clinical scenario on presentation, will obtain CTA chest to rule out PE. The patient will be continued on scheduled bronchodilators and IV steroids for now. No infectious etiology has yet to be identified. Will obtain respiratory viral panel. The patient remains sedated on propofol and fentanyl. Versed infusion to be discontinued. Appropriate ICU prophylaxis will be continued. Tube feeds can be initiated today from my perspective. 2. Questionable medical history/history of substance abuse Complicates care, management, recovery and prognosis. Continue supportive measures as noted above. UPDATE: CTA chest was completed and demonstrated bilateral pulmonary emboli. The patient was subsequently placed on therapeutic Lovenox. TIME: 37 minutes of critical care time, independent of procedures, was spent address ing the patient's acute combined respiratory failure, newly diagnosed bilateral pulmonary emboli, review of all data and collaboration with the care team. HPI Consult Data Date of Consult: 02/11/21 HPI Narrative Reason for Consultation: Acute combined respiratory failure HPI Narrative: The patient is a 45-year-old male, with a history as outlined below, who presented to the emergency department on February 10 via EMS with a primary respiratory arrest event. History pertinent to the patient's hospitalization was obtained primarily via chart review, as the patient is currently intubated and there is no family available at the bedside. Per documentation, the patient was initially being evaluated for a presumptive asthma exacerbation. EMS found the patient sitting on a bench in alex respiratory distress. He was cyanotic in appearance. Upon placing him on supplemental oxygen, the patient went into a short cardiac arrest with ACLS initiated. Return of spontaneous circulation was achieved after approximately 1 minute. On presentation to the emergency department, the patient was noted to be afebrile but was tachycardic, tachypneic and hypertensive. The patient was notably hypoxemic and was emergently intubated. Laboratory evaluation revealed a white blood cell count of 13,000. Coagulation profile was within normal limits. Initial arterial blood gas revealed a pH of 7.2 with a PCO2 of 62 and PO2 of 300. Chemistry profile was notable for an anion gap of 16 with a lactate of 15. Toxicology screen was positive for cannabinoids. Coronavirus PCR was negative. Chest x-ray demonstrated no acute cardiopulmonary process. The patient was started on scheduled bronchodilators and IV steroids. He was parikh bsequently admitted to the medical intensive care unit for further management. [facility] Medical History Asthma Medical History unable to obtain Home Medications albuterol sulfate 1 - 2 puff INHALATION Q4H PRN PRN 03/22/19 [History Last Taken Unknown] Allergy/AdvReac Type Severity Reaction Status Date / Time cat dander Allergy Itching Verified 02/10/21 21:36 Family History unable to obtain Surgical History unable to obtain Social History Smoking Status: Current every day smoker tobacco type: cigarettes ROS Review of Systems ROS Unobtainable: due to endotracheal tube and due to mental status Physical Exam Const no apparent distress Constitutional Narrative: No ventilator dyssynchrony noted. General Appearance: intubated and patient mechanically ventilated HEENT normocephalic and head/scalp atraumatic Mouth: endotracheal tube in place and OG tube in place Eyes PERRL, EOMs intact bilaterally and conjunctivae normal Neck supple General: trachea midline Chest inspection of chest normal Resp Auscultation: wheezes and diminished lung sounds Cardio regular rate and regular rhythm GI normal to inspection, nondistended, normoactive bowel sounds Extremity no clubbing, cyanosis or edema Skin no rashes or lesions noted Neuro Sensorium / Orientation: sedated on vent Lab / Micro Data Result Diagrams: 02/11/21 02:00 02/11/21 02:00 Labs: Laboratory Results - last 24 hr 02/10/21 21:15: WBC 13.0 H, RBC 5.08, Hgb 15.2, Hct 48.5, MCV 95.5 H, MCH 29.9, MCHC 31.3 L, RDW Std Deviation 46.5 H, RDW Coeff of Gisela 13.2, Plt Count 285, MPV 10.5, Immature Gran % (Auto) 0.200, Neut % (Auto) 43.7 L, Lymph % (Auto) 43.5 H, [place] % (Auto) 9.4, Eos % (Auto) 3.0, Baso % (Auto) 0.2, Absolute Neuts (auto) 5.7, Absolute Lymphs (auto) 5.66 H, Nucleated RBC % 0, Differential Comment SCANNED 02/10/21 21:15: PT 14.9, INR 1.2, APTT 29.2 02/10/21 21:15: Sodium 145, Potassium 4.3, Chloride 108 H, Carbon Dioxide 21.0, Anion Gap 16 H, BUN 13, Creatinine 1.27, Estim Creat Clear Calc 63.16, Est GFR (MDRD) Af Amer 78, Est GFR (MDRD) Non-Af 65, BUN/Creatinine Ratio 10.2, Glucose 177 H, Calcium 8.8, Total Bilirubin 0.40, Direct Bilirubin 0.13, AST 30, ALT 29, Alkaline Phosphatase 76, Troponin I High Sens 4, Total Protein 7.8, Albumin 3.8, Globulin 4.0 02/10/21 21:15: Ethyl Alcohol 5.0 02/10/21 21:15: Lactic Acid 15.0 H* 02/10/21 21:15: Phosphorus 8.6 H, Magnesium 3.1 H 02/10/21 21:15: Total Creatine Kinase 882 H, Triglycerides 274 H 02/10/21 22:12: Urine Opiates Screen NEGATIVE, Urine Methadone Screen NEGATIVE, Ur Barbiturates Screen NEGATIVE, Ur Phencyclidine Scrn NEGATIVE, Ur Amphetamines Screen NEGATIVE, U Methamphetamin-MDMA NEGATIVE, U Benzodiazepines Scrn NEGATIVE, Urine Cocaine Screen NEGATIVE, U Cannabinoids Screen POSITIVE H, Ur Drug Screen Comment 02/10/21 23:45: COVID-19 (ADI) Not Detected 02/11/21 02:00: WBC 13.5 H, RBC 4.44 L, Hgb 13.2, Hct 39.2 L, MCV 88.3 D, MCH 29.7, MCHC 33.7 D, RDW Std Deviation 42.7, RDW Coeff of Gisela 13.2, Plt Count 197, MPV 9.9, Immature Gran % (Auto) 0.600, Neut % (Auto) 95.8 H, Lymph % (Auto) 2.3 L, [place] % (Auto) 1.1, Eos % (Auto) 0.1, Baso % (Auto) 0.1, Absolute Neuts (auto) 12.9 H, Absolute Lymphs (auto) 0.31 L, Nucleated RBC % 0 02/11/21 02:00: Sodium 142, Potassium 3.5, Chloride 109 H, Carbon Dioxide 26.0, Anion Gap 7, BUN 15, Creatinine 0.92, Estim Creat Clear Calc 88.17, Est GFR (MDRD) Af Amer 114, Est GFR (MDRD) Non-Af 94, BUN/Creatinine Ratio 16.4, Glucose 148 H, Calcium 7.6 L, TSH 0.56 02/11/21 02:00: Lactic Acid 1.5 Micro: Microbiology 02/10/21 21:36 Nasal Secretion SARS-CoV-2 Antigen (Rapid) - Final ABG Data ABG results: ABG 02/10/21 02/11/21 21:20 01:41 Specimen Type ART ART Sample Site L Radial L Radial pH 7.20 L 7.36 Bicarbonate Actual 24.0 25.6 Total CO2 26 27 Base Excess -4 L 0 O2 Saturation 100 H 99 O2 % 60 35 ABG pCO2 61.8 H 45.9 H ABG pO2 301 H* 140 H Dagoberto Test Positive Positive Respiration Rate 10 10 O2 Delivery Device Adult Vent Adult Vent Vent Mode AC AC Tidal Volume 400 400 POC PEEP 5 5 Crit Call To/Read Back Yes Blood Gas Notified Elroy VIEYRA Radiology Impression Chest X-Ray 02/10/21 21:20 IMPRESSION: Endotracheal tube tip high at the level of T2 (subsequent radiographs show it has been advanced). Enteric tube extends into the stomach and off the film. Electronically Signed: Juanito Sexton MD at 22:50 EDT Tel , Service support , Chest X-Ray 02/10/21 22:02 IMPRESSION: Slight interval advancement of endotracheal tube with tip now 8 cm above the sona. Otherwise stable exam. Electronically Signed: Polo Cunningham MD at 22:34 EDT Tel , Service support , Chest X-Ray 02/10/21 22:08 IMPRESSION: The endotracheal tube tip is more distal in the trachea, now in the mid thoracic trachea about 6 cm above the sona. Electronically Signed: Juanito Sexton MD at 22:52 EDT Tel , Service support , Charges/Coding Procedures Hospitalists Procedures: [id number] [facility] 1[facility] Hr
[2021-02-11] MEDS: 0.9% Saline Lock 10 ML Syringe IV ×2 (06:49→21:23)
--- NOTE | 2021-02-11 07:20 | CT_ITS ---
STUDY: CTA CHEST REASON FOR EXAM: Male, 45 years old. Respiratory Failure. Shortness of breath. Asthma. Unresponsiveness. RADIATION DOSAGE (If Supplied By Facility): CTDIvol = ( 11.89 ) mGy, DLP = ( 424.07 ) mGycm TECHNIQUE: The examination was performed with the intravenous administration of IV 100mL Isovue-370. Post-processing of the angiographic images was performed, with multiplanar reformation and 3D reconstruction. Individualized dose optimization techniques were used for this CT. COMPARISON: None. FINDINGS: There is a marked degree of enlargement of the left lobe of the thyroid gland. There is a 4.5 cm x 6 cm predominantly cystic mass in the upper and midportion of the left lobe. Nonocclusive intraluminal filling defects are seen in branches of the left upper and left lower lobe as well as at the right lung base. This is in keeping with the pulmonary emboli. Normal thoracic aorta and visualized great vessels. There is no demonstrated aortic dissection. Normal heart and pericardium. Normal mediastinum. Normal hilar regions. Normal visualized trachea and bronchi. The lungs are well expanded. Mild degree of increased markings at the lung bases suggest some bibasilar atelectasis. Normal pleura. Normal chest wall structures. Normal osseous structures. No orogastric tube is seen with the tip in the body of the stomach. An endotracheal tube is in situ. CT/CTA Chest W/WO Contrast IMPRESSION: Bilateral pulmonary emboli. Bibasilar atelectasis. Large cystic mass in the left lobe of the thyroid. Electronically Signed: Demetrio Elliott MD at 8:20 EDT , Service support ,
--- NOTE | 2021-02-11 07:54 | PN.HOSP_ITS ---
Subjective Subjective Patient is a 45-year-old gentleman with history of asthma who was admitted with acute respiratory failure. Patient was apparently found in respiratory distress and went into cardiac arrest. Treatment was initiated by ACLS with ROSC. Transferred to the ER where patient was intubated and subsequently admitted to [facility] intensive care unit Objective Data Objective Data Vital Signs: Vital Signs Temp Pulse Resp BP Pulse Ox 98.6 F 93 13 92/64 94 02/11/21 07:00 02/11/21 07:00 02/11/21 07:00 02/11/21 07:00 02/11/21 07:00 Oxygen Delivery Method Mechanical Ventilator Weight: 62.8 kg Body Mass Index (BMI) 21.7 Intake & Output: Intake and Output for Last 24 Hours 02/09/21 02/10/21 02/11/21 23:59 23:59 23:59 Intake Total 17.15 / 17.15 219.97 / 219.97 Output Total 325 / 325 Balance 17.15 / 17.15 -105.03 / -105.03 Lab / Micro Data Result Diagrams: 02/11/21 02:00 02/11/21 02:00 Labs: Laboratory Results - last 24 hr 02/10/21 21:15: WBC 13.0 H, RBC 5.08, Hgb 15.2, Hct 48.5, MCV 95.5 H, MCH 29.9, MCHC 31.3 L, RDW Std Deviation 46.5 H, RDW Coeff of Gisela 13.2, Plt Count 285, MPV 10.5, Immature Gran % (Auto) 0.200, Neut % (Auto) 43.7 L, Lymph % (Auto) 43.5 H, [place] % (Auto) 9.4, Eos % (Auto) 3.0, Baso % (Auto) 0.2, Absolute Neuts (auto) 5.7, Absolute Lymphs (auto) 5.66 H, Nucleated RBC % 0, Differential Comment SCANNED 02/10/21 21:15: PT 14.9, INR 1.2, APTT 29.2 02/10/21 21:15: Sodium 145, Potassium 4.3, Chloride 108 H, Carbon Dioxide 21.0, Anion Gap 16 H, BUN 13, Creatinine 1.27, Estim Creat Clear Calc 63.16, Est GFR (MDRD) Af Amer 78, Est GFR (MDRD) Non-Af 65, BUN/Creatinine Ratio 10.2, Glucose 177 H, Calcium 8.8, Total Bilirubin 0.40, Direct Bilirubin 0.13, AST 30, ALT 29, Alkaline Phosphatase 76, Troponin I High Sens 4, Total Protein 7.8, Albumin 3.8, Globulin 4.0 02/10/21 21:15: Ethyl Alcohol 5.0 02/10/21 21:15: Lactic Acid 15.0 H* 02/10/21 21:15: Phosphorus 8.6 H, Magnesium 3.1 H 02/10/21 21:15: Total Creatine Kinase 882 H, Triglycerides 274 H 02/10/21 22:12: Urine Opiates Screen NEGATIVE, Urine Methadone Screen NEGATIVE, Ur Barbiturates Screen NEGATIVE, Ur Phencyclidine Scrn NEGATIVE, Ur Amphetamines Screen NEGATIVE, U Methamphetamin-MDMA NEGATIVE, U Benzodiazepines Scrn NEGATIVE, Urine Cocaine Screen NEGATIVE, U Cannabinoids Screen POSITIVE H, Ur Drug Screen Comment 02/10/21 23:45: COVID-19 (ADI) Not Detected 02/11/21 02:00: WBC 13.5 H, RBC 4.44 L, Hgb 13.2, Hct 39.2 L, MCV 88.3 D, MCH 29.7, MCHC 33.7 D, RDW Std Deviation 42.7, RDW Coeff of Gisela 13.2, Plt Count 197, MPV 9.9, Immature Gran % (Auto) 0.600, Neut % (Auto) 95.8 H, Lymph % (Auto) 2.3 L, [place] % (Auto) 1.1, Eos % (Auto) 0.1, Baso % (Auto) 0.1, Absolute Neuts (auto) 12.9 H, Absolute Lymphs (auto) 0.31 L, Nucleated RBC % 0 02/11/21 02:00: Sodium 142, Potassium 3.5, Chloride 109 H, Carbon Dioxide 26.0, Anion Gap 7, BUN 15, Creatinine 0.92, Estim Creat Clear Calc 88.17, Est GFR (MDRD) Af Amer 114, Est GFR (MDRD) Non-Af 94, BUN/Creatinine Ratio 16.4, Glucose 148 H, Calcium 7.6 L, TSH 0.56 02/11/21 02:00: Lactic Acid 1.5 Micro: Microbiology 10/31/21 21:36 Nasal Secretion SARS-CoV-2 Antigen (Rapid) - Final ABG Data ABG results: ABG 02/10/21 02/11/21 21:20 01:41 Specimen Type ART ART Sample Site L Radial L Radial pH 7.20 L 7.36 Bicarbonate Actual 24.0 25.6 Total CO2 26 27 Base Excess -4 L 0 O2 Saturation 100 H 99 O2 % 60 35 ABG pCO2 61.8 H 45.9 H ABG pO2 301 H* 140 H Dagoberto Test Positive Positive Respiration Rate 10 10 O2 Delivery Device Adult Vent Adult Vent Vent Mode AC AC Tidal Volume 400 400 POC PEEP 5 5 Crit Call To/Read Back Yes Blood Gas Notified Whom VIEYRA Radiography Diagnostic Testing: Radiology Impression Chest X-Ray 02/10/21 21:20 IMPRESSION: Endotracheal tube tip high at the level of T2 (subsequent radiographs show it has been advanced). Enteric tube extends into the stomach and off the film. Electronically Signed: Juanito Sexton MD at 22:50 EDT Tel , Service support , Chest X-Ray 02/10/21 22:02 IMPRESSION: Slight interval advancement of endotracheal tube with tip now 8 cm above the sona. Otherwise stable exam. Electronically Signed: Polo Cunningham MD at 22:34 EDT Tel , Service support , Chest X-Ray 02/10/21 22:08 IMPRESSION: The endotracheal tube tip is more distal in the trachea, now in the mid thoracic trachea about 6 cm above the sona. Electronically Signed: Juanito Sexton MD at 22:52 EDT Tel , Service support , Physical Exam Narrative GENERAL: Sedated on the vent HEENT: Atraumatic; EYES; Anicteric, Normal Conjunctiva NECK; supple, normal thyroid, RESPIRATORY: Diminished to auscultation CARDIOVASCULAR: Regular S1 S2, GI: soft, normoactive bowel sounds, : No Renal angle tenderness; EXTREMITIES: No edema, no clubbing, MUSCULOSKELETAL: no muscle waisting NEURO: Sedated on the vent SKIN: No Rash PSYCH; unable to assess Assessment & Plan Assessment/Plan (1) Respiratory arrest: (2) New onset a-fib: (3) Lactic acidosis: PLAN: Patient is a 45-year-old gentleman with history of asthma who was admitted with acute respiratory failure. Patient was apparently found in respiratory distress and went into cardiac arrest. Treatment was initiated by ACLS with ROSC. Transferred to the ER where patient was intubated and subsequently admitted to the intensive care unit 1. Acute hypoxic respiratory failure ?Thought to be secondary to status asthmaticus. Intubated in the ED admitted to the intensive care unit with consultation placed to occup ther. Vent management deferred 2. Cardiopulmonary arrest ?Secondary to above patient was successfully resuscitated using ACLS protocol with ROSC 3. A. fib with RVR ?Possibly per stated by above. Heart rate back to within normal limit 4. Lactic acidosis ?Sepsis ruled out this is secondary to increased work of breathing 5. DVT prophylaxis ?Enoxaparin Charges/Coding Visit Charges Inpatient E&M: 51413 [facility] Hosp L3
[2021-02-11] MEDS: Enoxaparin 60 MG/0.6 ML Syringe SC ×2 (10:13→21:23)
[2021-02-11] MEDS: Chlorhexidine 15 ML PO ×2 (10:13→21:24)
[2021-02-11] MEDS: Famotidine 20 MG Tablet PO ×2 (10:14→21:23)
--- NOTE | 2021-02-11 10:30 | CASEMGMT ---
CECY SWAIN Face to Face with patient for initial transition planning/care coordination assessment. Patient currently on vent, daughter Andreia at bedside. RN BRYNN introduced self and role at [facility]. Keviner willing to participate in assessment and is able to answer all questions appropriately. Care providers, pharmacy, and demographics verified. Daughter wishes for patient to discharge home, will monitor course of treatment and progress with therapy to determine discharge disposition. Daughter, Andreia, states she has no further needs or concerns at this time. CM to follow for discharge planning needs that may arise. PCP: Matt Specialists: none Preferred Pharmacy: [facility] Insurance: R Prescription Benefit: yes Living Will/HPOA: none LNOK: daughter, parents Living Arrangements: patient lives alone in a 2nd floor apartment with elevator. Per daughter patient was independent at home. Transportation: self/daughter DME/HHC: Daughter denies DME or previous HHC. Disposition Plan: TBD Precious FELDMAN, RN, CM
[2021-02-11] MEDS: Vital AF 1.2 Cal Liquid 1,000 ML 50 ML GT (13:15)
[2021-02-11] MEDS: Potassium Chloride 10mEq/100mL 10 MEQ/100 ML IV.SOLN. 100 MEQ IV BOLUS ×4 (13:30→18:16)
[2021-02-11] MEDS: Propofol 10MG/Ml 1,000 MG/100 ML Bottle 7.5 MG CONT INF ×2 (18:00→21:16)
[2021-02-12] VITALS (30 sets, daily range): BP systolic 98–140; BP diastolic 55–101; PULSE 72–107; RESP 10–22; TEMP 36.6–37.7; O2SAT 91–98
--- NOTE | 2021-02-12 01:00 | NURSING ---
Pt with eyes open, discussed patient care and events. Pt writing on clip board.
[2021-02-12] MEDS: Ipratropium/Albuterol Sulfate 3 ML AMPUL.NEB INHALATION ×6 (04:03→22:34)
--- NOTE | 2021-02-12 04:17 | NURSING ---
PT awake, alert follows all commands. labs drawn, restraints off, propofol and fentanyl off for SAT.
[2021-02-12 04:24] LABS: Absolute Lymphocyte Count 0.75 X10^3/uL (0.83-4.51); Basophil# 0.02 X10^3/uL; Basophil% 0.1 % (0-1); Hematocrit 40.1 % (40-54); Hemoglobin 13.4 g/dL (13.0-16.5); Lymphocyte # 0.75 X10^3/ul (0.83-4.51); Lymphocyte % 3.8 % (19-41); Mean Corp Hgb Conc 33.4 g/dL (32-36); Mean Corpuscular Hgb 29.8 pg (27.0-32.0); Mean Corpuscular Volume 89.3 fL (80-94); Mean Platelet Vol. 9.6 fl (6.2-12.0); Monocyte% 3.1 % (0-10); NRBC Flagged by Analyzer 0 % (0-5); Neutrophil # 18.01 X10^3/uL (2.7-7.7); Neutrophil % 92.4 % (47-70); Platelet Count 211 K/mm3 (150-450); RBC Distribution Width CV 13.3 % (11.6-14.6); RBC Distribution Width SD 43.8 fl (35.1-43.9); Red Blood Count 4.49 M/mm3 (4.6-6.2); White Blood Count 19.5 K/mm3 (4.4-11.0)
[2021-02-12 04:48] LABS: ALB/GLOB Ratio 0.9 RATIO (0.9-2.4); AST(SGOT) 29 U/L (15-37); Alanine Aminotransfer ALT/SGPT 29 U/L (16-61); Albumin, Serum 3.2 g/dL (3.2-5.0); Alkaline Phosphatase 57 U/L (45-117); Anion Gap 5 (5-15); BUN 23 mg/dL (7-18); BUN/Creat Ratio 26.2 RATIO (10-20); Calcium,Total 7.8 mg/dL (8.5-10.1); Chloride 106 mmol/L (98-107); Creatinine, Serum 0.88 mg/dL (0.70-1.30); EST Glomerular Filtration Rate 99 mL/min (>60); Est Glom Filt Rate - Afr Amer 119 mL/min (>60); Estimated Creatinine Clearance 92.18 ml/min; Globulin 3.7 g/dL (2.2-4.2); Glucose 118 mg/dL (74-106); Magnesium 2.6 mg/dL (1.6-2.6); Potassium 4.6 mmol/L (3.5-5.1); Protein, Total 6.9 g/dL (6.4-8.2); Sodium Level 137 mmol/L (136-145)
--- NOTE | 2021-02-12 05:10 | NURSING ---
Pt anxious, coughing, writing notes to this RN, support given.
--- NOTE | 2021-02-12 05:44 | PN.CC_ITS ---
Assessment & Plan Assessment/Plan (1) Acute respiratory failure with hypoxia and hypercapnia: PLAN: RECOMMENDATIONS: 1. Proceed with a trial of extubation. 2. Once extubated, wean supplemental oxygen to maintain saturations at or above 90%. 3. Perform bedside swallow evaluation and advance diet accordingly. 4. Transition from Lovenox to Eliquis. 5. Transition from IV steroids to prednisone 40 mg daily. 6. Continue scheduled bronchodilator therapy. 7. Encourage incentive spirometer use and mobilize patient as tolerated. IMPRESSIONS: 1. Acute combined respiratory failure Likely multifactorial in etiology. The patient does have underlying asthma, which may have been exacerbated by bilateral pulmonary emboli identified on CTA chest. This may be secondary to his recent COVID-19 pneumonia. He does not have any risk factors for venous thromboembolic disease. The patient also has significant sputum production, for which he was started on Levaquin, which will be continued for 7 days. The patient will be continued on scheduled bronchodilators and steroids. He passed his spontaneous breathing trial this morning and was extubated. Plan to wean supplemental oxygen as tolerated to maintain saturations at or above 90%. 2. Questionable medical history/history of substance abuse Complicates care, management, recovery and prognosis. Continue supportive measures as noted above. TIME: 32 minutes of critical care time, independent of procedures, was spent addressi ng the patient's acute combined respiratory failure, newly diagnosed bilateral pulmonary emboli, review of all data and collaboration with the care team. Subjective Subjective The patient was seen and examined at the bedside this morning. Events from the last 24 hours have been reviewed. The patient is currently afebrile, hemodynamically stable and maintaining appropriate oxygen saturations on spontaneous mode mechanical ventilation with an FiO2 requirement of 25%. The patient passed his spontaneous breathing trial this morning. He is currently alert and following commands appropriately. He is documented to be overall net +500 mL for the hospital admission. He remains on scheduled bronchodilators, IV steroids and Lovenox. The patient was noted to have bilateral pulmonary emboli on CTA chest yesterday. Following my evaluation of the patient this morning, he was able to be extubated to nasal cannula supplemental oxygen. The patient did report to me that he had Covid 1 month ago but was never hospitalized. The patient denies a history of venous thromboembolic disease. He denies any recent immobility or prolonged travel. He has no family history of any hypercoagulable conditions. Objective Data Objective Data The patient's most recent lab work, culture data and imaging studies have all been personally reviewed. Respiratory viral panel was negative. Sputum culture is pending. Vital Signs: Vital Signs Temp Pulse Resp BP Pulse Ox 98.9 F 100 18 138/87 H 98 02/12/21 05:00 02/12/21 05:00 02/12/21 05:00 02/12/21 05:00 02/12/21 05:00 Oxygen Flow Rate (L/min) 1 Oxygen Delivery Method Mechanical Ventilator Weight: 62.8 kg Body Mass Index (BMI) 21.7 Intake & Output: Intake and Output for Last 24 Hours 02/10/21 02/11/21 02/12/21 23:59 23:59 23:59 Intake Total 17.15 / 17.15 1604.70 / 1630.53 287.66 / 287.66 Output Total 1450 / 1450 Balance 17.15 / 17.15 154.70 / 180.53 287.66 / 287.66 Lab / Micro Data Attestation: I reviewed the patient's lab results. Result Diagrams: 02/12/21 04:10 02/12/21 04:10 Labs: Laboratory Results - last 24 hr 02/12/21 04:10: WBC 19.5 H, RBC 4.49 L, Hgb 13.4, Hct 40.1, MCV 89.3, MCH 29.8, MCHC 33.4, RDW Std Deviation 43.8, RDW Coeff of Gisela 13.3, Plt Count 211, MPV 9.6, Immature Gran % (Auto) 0.600, Neut % (Auto) 92.4 H, Lymph % (Auto) 3.8 L, [place] % (Auto) 3.1, Eos % (Auto) 0.0, Baso % (Auto) 0.1, Absolute Neuts (auto) 18.0 H, Absolute Lymphs (auto) 0.75 L, Nucleated RBC % 0 02/12/21 04:10: Sodium 137, Potassium 4.6, Chloride 106, Carbon Dioxide 26.0, Anion Gap 5, BUN 23 H, Creatinine 0.88, Estim Creat Clear Calc 92.18, Est GFR (MDRD) Af Amer 119, Est GFR (MDRD) Non-Af 99, BUN/Creatinine Ratio 26.2 H, Glucose 118 H, Calcium 7.8 L, Magnesium 2.6, Total Bilirubin 0.40, AST 29, ALT 29, Alkaline Phosphatase 57, Total Protein 6.9, Albumin 3.2, Globulin 3.7, Albumin/Globulin Ratio 0.9 Micro: Microbiology 02/11/21 08:35 Mucosa - Nasopharyngeal Respiratory Panel (PCR) - Final 02/11/21 01:00 Sputum, Induced/Lukens Gram Stain - Final 02/10/21 21:36 Nasal Secretion SARS-CoV-2 Antigen (Rapid) - Final Radiography Diagnostic Testing: Radiology Impression Chest CTA 02/11/21 07:20 IMPRESSION: Bilateral pulmonary emboli. Bibasilar atelectasis. Large cystic mass in the left lobe of the thyroid. Electronically Signed: Demetrio Elliott MD at 8:20 EDT , Service support , Physical Exam Const alert and no apparent distress Constitutional Narrative: No ventilator dyssynchrony noted. General Appearance: cooperative, intubated and patient mechanically ventilated HEENT normocephalic and head/scalp atraumatic Mouth: endotracheal tube in place and OG tube in place Eyes PERRL, EOMs intact bilaterally and conjunctivae normal Neck supple General: trachea midline Chest inspection of chest normal Resp Auscultation: diminished lung sounds; Negative for rales, rhonchi or wheezes Cardio S1 normal heart sound and S2 normal heart sound Rate: tachycardic GI normal to inspection, nondistended, normoactive bowel sounds Extremity no clubbing, cyanosis or edema Skin no rashes or lesions noted Neuro moves all extremities and no focal motor deficits Neuro Narrative: Follows commands appropriately. Charges/Coding Procedures Hospitalists Procedures: 14953 Critial Care 1st Hr
[2021-02-12] MEDS: 0.9% Saline Lock 10 ML Syringe IV (06:00)
--- NOTE | 2021-02-12 06:15 | NURSING ---
Dr Subramanian on unit, updated on events of last 12 hours, ok to extubate.
--- NOTE | 2021-02-12 07:02 | PN.HOSP_ITS ---
Subjective Subjective CT obtained the day prior demonstrated bilateral pulmonary emboli. Bibasilar atelectasis.. He was also found to have Large cystic mass in the left lobe of the thyroid Objective Data Objective Data Vital Signs: Vital Signs Temp Pulse Resp BP Pulse Ox 98.9 F 107 H 10 L 128/101 H 97 02/12/21 05:00 02/12/21 06:00 02/12/21 06:00 02/12/21 06:00 02/12/21 06:00 Oxygen Flow Rate (L/min) 1 Oxygen Delivery Method Mechanical Ventilator Weight: 63.7 kg Body Mass Index (BMI) 21.7 Intake & Output: Intake and Output for Last 24 Hours 02/10/21 02/11/21 02/12/21 23:59 23:59 23:59 Intake Total 17.15 / 17.15 1604.70 / 1630.53 287.66 / 287.66 Output Total 1450 / 1450 200 / 200 Balance 17.15 / 17.15 154.70 / 180.53 87.66 / 87.66 Lab / Micro Data Result Diagrams: 02/12/21 04:10 02/12/21 04:10 Labs: Laboratory Results - last 24 hr 02/12/21 04:10: WBC 19.5 H, RBC 4.49 L, Hgb 13.4, Hct 40.1, MCV 89.3, MCH 29.8, MCHC 33.4, RDW Std Deviation 43.8, RDW Coeff of Gisela 13.3, Plt Count 211, MPV 9.6, Immature Gran % (Auto) 0.600, Neut % (Auto) 92.4 H, Lymph % (Auto) 3.8 L, [place] % (Auto) 3.1, Eos % (Auto) 0.0, Baso % (Auto) 0.1, Absolute Neuts (auto) 18.0 H, Absolute Lymphs (auto) 0.75 L, Nucleated RBC % 0 02/12/21 04:10: Sodium 137, Potassium 4.6, Chloride 106, Carbon Dioxide 26.0, Anion Gap 5, BUN 23 H, Creatinine 0.88, Estim Creat Clear Calc 92.18, Est GFR (MDRD) Af Amer 119, Est GFR (MDRD) Non-Af 99, BUN/Creatinine Ratio 26.2 H, Glucose 118 H, Calcium 7.8 L, Magnesium 2.6, Total Bilirubin 0.40, AST 29, ALT 29, Alkaline Phosphatase 57, Total Protein 6.9, Albumin 3.2, Globulin 3.7, Albumin/Globulin Ratio 0.9 Micro: Microbiology 02/11/21 08:35 Mucosa - Nasopharyngeal Respiratory Panel (PCR) - Final 02/11/21 01:00 Sputum, Induced/Lukens Gram Stain - Final 02/10/21 21:36 Nasal Secretion SARS-CoV-2 Antigen (Rapid) - Final Radiography Diagnostic Testing: Radiology Impression Chest CTA 02/11/21 07:20 IMPRESSION: Bilateral pulmonary emboli. Bibasilar atelectasis. Large cystic mass in the left lobe of the thyroid. Electronically Signed: Demetrio Elliott MD at 8:20 EDT , Service support , Physical Exam Narrative GENERAL: Cooperative in no distress HEENT: Atraumatic; EYES; Anicteric, Normal Conjunctiva NECK; supple, normal thyroid, RESPIRATORY: Diminished to auscultation CARDIOVASCULAR: Regular S1 S2, GI: soft, normoactive bowel sounds, : No Renal angle tenderness; EXTREMITIES: No edema, no clubbing, MUSCULOSKELETAL: no muscle waisting NEURO: Awake, no lateralizing signs SKIN: No Rash PSYCH; flat affect Assessment & Plan Assessment/Plan (1) Respiratory arrest: (2) New onset a-fib: (3) Lactic acidosis: PLAN: Patient is a 45-year-old gentleman with history of asthma who was admitted with acute respiratory failure. Patient was apparently found in respiratory distress and went into cardiac arrest. Treatment was initiated by ACLS with ROSC. Transferred to the ER where patient was intubated and sub sequently admitted to the intensive care unit 1. Acute hypoxic respiratory failure ?Thought to be secondary to status asthmaticus. Intubated in the ED admitted to the intensive care unit with consultation placed to surgical sales representative. Vent management deferred -02/12/2022 patient successfully weaned off the vent. CT obtained demonstrated bilateral pulmonary embolism possibly etiology for patient acute hypoxic respiratory failure and subsequent cardiopulmonary arrest 2. Cardiopulmonary arrest ?Secondary to above patient was successfully resuscitated using ACLS protocol with ROSC 3. A. fib with RVR ?Possibly per stated by above. Heart rate back to within normal limit 4. Acute bilateral pulmonary embolism -Secondary to COVID-19 hypercoagulable state. Patient has been diagnosed with Covid weeks prior to his admission. Patient has subsequently been started on apixaban. Ordered 2D echo 5. Large cystic mass in the left lobe of the thyroid -Ultrasound of the thyroid ordered for subsequent evaluation 6. Lactic acidosis ?Sepsis ruled out this is secondary to increased work of breathing Charges/Coding Visit Charges Inpatient E&M: 39133 Subs Hosp L3
[2021-02-12] MEDS: Enoxaparin 60 MG/0.6 ML Syringe SC (09:23)
[2021-02-12] MEDS: Famotidine 20 MG Tablet PO ×2 (09:23→21:13)
[2021-02-12] MEDS: Ondansetron 4 MG/2 ML Vial IV (10:30)
--- NOTE | 2021-02-12 10:54 | CASEMGMT ---
Addendum entered by Rosa De La Rosa 02/12/21 14:52: SW checked back with pt a couple of times this afternoon, pt has been sleeping. SW will continue to follow and check back w/him in regard to completing LW/POA as time allows. DAYNA Marks Original Note: SW participated in ICU rounds. As per nursing, there has been calls in from pt's daughters and sister, in regard to who should be pt's primary contact. Pt is now awake and alert, SW inquired w/pt. As per pt, he does have two step daughters, but neither have been adopted. He also confirms has a sister, Roxane. Pt would like Roxane to be his primary contact, and step daughter Andreia to be the second contact. Pt is also in agreement with completing POA forms, though asked if SW can meet w/him this afternoon as he is tired. SW also inquired how he is managing mentally, as last time he was here in April 2019 was placed in a psychiatric facility. Pt states has gotten away from his girlfriend at that time, and is managing fine. Pt is not in counseling at present, and does not feel the need to be in counseling at this time. SW will speak w/pt later today as time allows to complete POA forms and LW if pt would like to complete this document as well. DAYNA Marks
[2021-02-12] MEDS: levoFLOXacin 750 MG Tablet PO (11:11)
[2021-02-12] MEDS: predniSONE 20 MG Tablet 40 MG PO (11:11)
--- NOTE | 2021-02-12 11:13 | ECHOD_ITS ---
Reason For Study: EMBOLI Procedure This was a 2D Doppler, Color Flow transthoracic echocardiogram. The study was technically difficult. Exam performed portable in ICU/CCU. Left Ventricle Normal LV size. Apical false tendon noted. Left ventricular systolic function is normal. The estimated ejection fraction is 65 %. No evidence for diastolic dysfunction. No regional wall motion abnormalities noted. Right Ventricle Normal RV size. Normal systolic function. Atria Normal left atrium. Normal right atrium. No doppler evidence for ASD. Mitral Valve There is no mitral annular calcification. Normal mitral valve. Trivial mitral valve insufficiency. Tricuspid Valve Normal tricuspid valve. Trivial tricuspid valve insufficiency. Unable to estimate RV systolic pressure/pulmonary artery pressure due to technically difficult study. Aortic Valve Trisinus/trileaflet aortic valve. Normal aortic valve. Pulmonic Valve The pulmonic valve is not well visualized. Great Vessels The aortic root is not well visualized. Pericardium/Pleural No pericardial effusion. MMode/2D Measurements & Calculations LVIDd: 4.8 cm IVSd: 1.1 cm LA dimension(2D): 3.0 cm LVIDs: 3.4 cm LVPWd: 1.1 cm RVDd: 3.7 cm FS: 29.0 % RA A4 area: 16.9 cm2 Time Measurements MV dec time: 0.17 sec Doppler Measurements & Calculations MV E max lul: 81.0 cm/sec Lat Peak E' Lul: 15.7 cm/sec Med Peak E' Lul: 18.6 cm/sec MV A max lul: 66.4 cm/sec E/E' lat: 5.2 E/E' med: 4.4 MV E/A: 1.2 LV V1 max: 82.4 cm/sec PA V2 max: 95.6 cm/sec LV V1 max P.7 mmHg ECHO/Echo Complete Interpretation Summary The study was technically difficult. Left ventricular systolic function is normal. The estimated ejection fraction is 65 %. Apical false tendon noted. Trivial mitral valve insufficiency. Trivial tricuspid valve insufficiency. Unable to estimate RV systolic pressure/pulmonary artery pressure due to techni rachele difficult study. No evidence for diastolic dysfunction. Ordering Physician: Rancho Liu Referring Physician: Tesfaye Gutierrez Performed By: Jennifer Watters RDCS, RVT
--- NOTE | 2021-02-12 11:13 | US_ITS ---
STUDY: THYROID ULTRASOUND REASON FOR EXAM: Male, 45 years old. Thyroid mass TECHNIQUE: Ultrasound evaluation of the thyroid was performed with real-time and static arceo-scale imaging. COMPARISON: Comparison is made with a prior CT scan of the thorax dated 02/11/2021. FINDINGS: RIGHT LOBE: The right lobe of the thyroid gland is enlarged and measures 6.7 cm x 2.4 cm x 2 cm. There is a homogeneous echotexture. There are no demonstrated solid, cystic or complex lesions. LEFT LOBE: The left lobe of the thyroid gland is enlarged and measures 10.2 cm x 5.4 cm x 4.5 cm. There is a homogeneous echotexture. There is a large 6.7 cm x 4.8 cm x 3.5 cm cystic mass with septations. A biopsy is recommended. ISTHMUS: The isthmus measures 3.5 mm. The regional lymph nodes are normal. US/Thyroid IMPRESSION: Enlarged thyroid gland. 6.7 cm x 4.8 cm x 3.5 cm complex cystic mass in the left lobe of the thyroid. Biopsy is recommended. Electronically Signed: Demetrio Elliott MD at 15:38 EDT , Service support ,
[2021-02-12] MEDS: APIXABAN 5 MG TABLET 10 MG PO (21:13)
[2021-02-12] MEDS: Acetaminophen 325 MG Tablet 650 MG PO (21:13)
[2021-02-12] MEDS: oxyCODONE 5 MG Tablet PO (23:30)
[2021-02-13] VITALS (7 sets, daily range): BP systolic 124–125; BP diastolic 79–90; PULSE 77–90; RESP 18–21; TEMP 36.8; O2SAT 93–95
[2021-02-13] MEDS: Ipratropium/Albuterol Sulfate 3 ML AMPUL.NEB INHALATION ×2 (03:44→11:22)
--- NOTE | 2021-02-13 03:45 | NURSING ---
Pt requesting breathing treatment. RT unavailable at this time. Explained to pt that RT would be with him royal. Pt concerned and requesting breathing treatment now. This RN pulled breathing treatment and given to pt in RT stead.
[2021-02-13] MEDS: Albuterol 2.5 MG/3 ML VIAL.NEB. INHALATION (05:46)
[2021-02-13 07:58] LABS: Absolute Lymphocyte Count 1.23 X10^3/uL (0.83-4.51); Absolute Neutrophil Count 8.7 X10^3/uL (2.0-7.7); Basophil# 0.01 X10^3/uL; Basophil% 0.1 % (0-1); Hematocrit 40.3 % (40-54); Hemoglobin 13.6 g/dL (13.0-16.5); Lymphocyte # 1.23 X10^3/ul (0.83-4.51); Lymphocyte % 11.3 % (19-41); Mean Corp Hgb Conc 33.7 g/dL (32-36); Mean Corpuscular Hgb 29.6 pg (27.0-32.0); Mean Corpuscular Volume 87.6 fL (80-94); Mean Platelet Vol. 10.3 fl (6.2-12.0); Monocyte# 0.97 X10^3/uL; Monocyte% 8.9 % (0-10); NRBC Flagged by Analyzer 0 % (0-5); Neutrophil # 8.69 X10^3/uL (2.7-7.7); Neutrophil % 79.4 % (47-70); Platelet Count 174 K/mm3 (150-450); RBC Distribution Width CV 13.2 % (11.6-14.6); RBC Distribution Width SD 42.3 fl (35.1-43.9); White Blood Count 10.9 K/mm3 (4.4-11.0)
[2021-02-13] MEDS: predniSONE 20 MG Tablet 40 MG PO (08:03)
[2021-02-13 08:24] LABS: ALB/GLOB Ratio 0.8 RATIO (0.9-2.4); AST(SGOT) 36 U/L (15-37); Alanine Aminotransfer ALT/SGPT 39 U/L (16-61); Albumin, Serum 3.2 g/dL (3.2-5.0); Alkaline Phosphatase 58 U/L (45-117); Anion Gap 6 (5-15); BUN 20 mg/dL (7-18); BUN/Creat Ratio 25.2 RATIO (10-20); Calcium,Total 8.6 mg/dL (8.5-10.1); Chloride 107 mmol/L (98-107); Creatinine, Serum 0.79 mg/dL (0.70-1.30); EST Glomerular Filtration Rate 111 mL/min (>60); Est Glom Filt Rate - Afr Amer 134 mL/min (>60); Estimated Creatinine Clearance 97.45 ml/min; Globulin 3.8 g/dL (2.2-4.2); Glucose 91 mg/dL (74-106); Potassium 3.6 mmol/L (3.5-5.1); Sodium Level 138 mmol/L (136-145)
--- NOTE | 2021-02-13 10:23 | PN.CC_ITS ---
Assessment & Plan Assessment/Plan (1) Acute respiratory failure with hypoxia and hypercapnia: PLAN: RECOMMENDATIONS: 1. Continue Eliquis as ordered for at least 3 months. 2. Continue scheduled bronchodilators. 3. Continue prednisone 40 mg daily x5 days. 4. Continue Levaquin daily to complete 7-day treatment course. 5. Encourage incentive spirometer use and mobilize patient as tolerated. 6. Will sign off from a pulmonary/critical care perspective. Please call with any additional questions. IMPRESSIONS: 1. Acute combined respiratory failure Likely multifactorial in etiology. The patient does have underlying asthma, which may have been exacerbated by bilateral pulmonary emboli identified on CTA chest. This may be secondary to his recent COVID-19 pneumonia. He does not have any risk factors for venous thromboembolic disease. The patient also has significant sputum production, for which he was started on Levaquin, which will be continued for 7 days. Although initially intubated, the patient was able to be extubated on February 12. He is doing well from a respiratory perspective. Recommend continuing Eliquis for at least 3 months of treatment. Continue scheduled bronchodilators as ordered. Continue Levaquin daily x7 days. At discharge, recommend prednisone 40 mg daily x5 days. Perform walking oximetry study prior to consideration for discharge home. The patient can follow-up in the pulmonary medicine clinic after discharge. 2. Questionable medical history/history of substance abuse Complicates care, management, recovery and prognosis. Continue supportive measures as noted above. This note was generated with [employer] dictation software. It may contain incorrect words, spelling, and punctuation that were not noted in checking the note before signing. Subjective Subjective The patient was seen and examined at the bedside this morning. Events from the last 24 hours have been reviewed. The patient is currently afebrile, hemodynamically stable and maintaining appropriate oxygen saturations on room air. Lab work from this morning was unremarkable. The patient remains on bronchodilators, Eliquis and Levaquin. Objective Data Objective Data The patient's most recent lab work, culture data and imaging studies have all been personally reviewed. Respiratory viral panel was negative. Sputum culture is pending. Vital Signs: Vital Signs Temp Pulse Resp BP Pulse Ox 98.2 F 89 20 H 124/79 H 95 02/13/21 03:00 02/13/21 06:56 02/13/21 05:46 02/13/21 03:00 02/13/21 07:36 Oxygen Flow Rate (L/min) 2 Oxygen Delivery Method Room Air Weight: 59.6 kg Body Mass Index (BMI) 21.7 Intake & Output: Intake and Output for Last 24 Hours 02/11/21 02/12/21 02/13/21 23:59 23:59 23:59 Intake Total 1604.70 / 1630.53 627.66 / 627.66 Output Total 1450 / 1450 975 / 975 Balance 154.70 / 180.53 -347.34 / -347.34 Lab / Micro Data Attestation: I reviewed the patient's lab results. Result Diagrams: 02/13/21 06:00 02/13/21 06:00 Labs: Laboratory Results - last 24 hr 02/13/21 06:00: WBC 10.9, RBC 4.60, Hgb 13.6, Hct 40.3, MCV 87.6, MCH 29.6, MCHC 33.7, RDW Std Deviation 42.3, RDW Coeff of Gisela 13.2, Plt Count 174, MPV 10.3, Immature Gran % (Auto) 0.300, Neut % (Auto) 79.4 H, Lymph % (Auto) 11.3 L, Garza % (Auto) 8.9, Eos % (Auto) 0.0, Baso % (Auto) 0.1, Absolute Neuts (auto) 8.7 H, Absolute Lymphs (auto) 1.23, Nucleated RBC % 0 02/13/21 06:00: Sodium 138, Potassium 3.6, Chloride 107, Carbon Dioxide 25.0, An ion Gap 6, BUN 20 H, Creatinine 0.79, Estim Creat Clear Calc 97.45, Est GFR ( MDRD) Af Amer 134, Est GFR (MDRD) Non-Af 111, BUN/Creatinine Ratio 25.2 H, Gl ucose 91, Calcium 8.6, Total Bilirubin 0.50, AST 36, ALT 39, Alkaline Phosphatase 58, Total Protein 7.0, Albumin 3.2, Globulin 3.8, Albumin/Globulin Ratio 0.8 L Micro: Microbiology 02/11/21 01:00 Sputum, Induced/Lukens Gram Stain - Final 02/11/21 01:00 Sputum, Induced/Lukens Respiratory Culture - Final 02/11/21 08:35 Mucosa - Nasopharyngeal Respiratory Panel (PCR) - Final 02/10/21 21:36 Nasal Secretion SARS-CoV-2 Antigen (Rapid) - Final Radiography Diagnostic Testing: Radiology Impression Echocardiogram 02/12/21 11:13 Interpretation Summary The study was technically difficult. Left ventricular systolic function is normal. The estimated ejection fraction is 65 %. Apical false tendon noted. Trivial mitral valve insufficiency. Trivial tricuspid valve insufficiency. Unable to estimate RV systolic pressure/pulmonary artery pressure due to technically difficult study. No evidence for diastolic dysfunction. ____ Ordering Physician: Rancho Liu Referring Physician: Tesfaye Gutierrez Performed By: Jennifer Watters, RDCS, RVT Thyroid Ultrasound 02/12/21 11:13 IMPRESSION: Enlarged thyroid gland. 6.7 cm x 4.8 cm x 3.5 cm complex cystic mass in the left lobe of the thyroid. Biopsy is recommended. Electronically Signed: Demetrio Elliott MD at 15:38 EDT , Service support , Physical Exam Const alert, oriented x3 and no apparent distress Constitutional Narrative: No ventilator dyssynchrony noted. General Appearance: cooperative HEENT normocephalic and head/scalp atraumatic Eyes PERRL, EOMs intact bilaterally and conjunctivae normal Neck supple General: trachea midline Chest inspection of chest normal Resp Auscultation: diminished lung sounds; Negative for rales, rhonchi or wheezes Cardio regular rate, regular rhythm, S1 normal heart sound and S2 normal heart sound GI normal to inspection, nondistended, normoactive bowel sounds Extremity no clubbing, cyanosis or edema Skin no rashes or lesions noted Neuro moves all extremities and no focal motor deficits Neuro Narrative: Follows commands appropriately. Psych cooperative and affect normal Charges/Coding Visit Charges Inpatient E&M: 77304 Subs Hosp L2
--- NOTE | 2021-02-13 10:52 | PCM.DC.SUM ---
Providers Date of Admission: 02/10/21 Primary Care Physician: Dr. Tesfaye Gutierrez MD Consultations 02/11/21 00:51 Consult: Talent Development Consultant / Pulmonary Medicine Routine Consulting Provider: Anjum Subramanian Reason for Consult: Vent management EMERGENT Consult: No MD Notified: Yes Date Notified: 02/10/21 Time Notified: 23:32 Method of Notification: Text Reason For Visit: STATUS ASTHMATICUS/CARDIOPULMONARY ARREST Diagnosis Discharge Diagnosis (1) Acute respiratory failure with hypoxia and hypercapnia: Status: Acute Code(s): J96.01 - Acute respiratory failure with hypoxia; J96.02 - Acute respiratory failure with hypercapnia Medications at Discharge Home Medications albuterol sulfate 1 - 2 puff INHALATION Q4H PRN PRN 03/22/19 apixaban [Eliquis] 5 mg PO BID 30 Days #60 tab 02/13/21 apixaban [Eliquis] 10 mg PO BID 5 Days #20 tab 02/13/21 levofloxacin 750 mg PO DAILY 5 Days #5 tab 02/13/21 prednisone 40 mg PO DAILYCM 5 Days #10 tab 02/13/21 Hospital Course Summary of Care Provided Minutes Spent on Discharge: 35 Hospital Course: Patient is a 45-year-old gentleman with history of asthma who was admitted with acute respiratory failure. Patient was apparently found in respiratory distress and went into cardiac arrest. Treatment was initiated by ACLS with ROSC. Transferred to the ER where patient was intubated and subsequently admitted to the intensive care unit 1. Acute hypoxic respiratory failure ?Thought to be secondary to status asthmaticus. Intubated in the ED admitted to the intensive care unit with consultation placed to roving technician. Vent management deferred -02/12/2022 patient successfully weaned off the vent. CT obtained demonstrated bilateral pulmonary embolism possibly etiology for patient acute hypoxic respiratory failure and subsequent cardiopulmonary arrest -Patient was discharged home on Levaquin as well as prednisone 2. Cardiopulmonary arrest ?Secondary to above patient was successfully resuscitated using ACLS protocol with ROSC 3. A. fib with RVR ?Possibly per stated by above. Heart rate back to within normal limit 4. Acute bilateral pulmonary embolism -Secondary to COVID-19 hypercoagulable state. Patient has been diagnosed with Covid weeks prior to his admission. Patient has subsequently been started on apixaban. Ordered 2D echo ?Echo demonstrated EF of 65% with normal LV systolic function -Prescription was written for Eliquis on discharge 5. 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 Biopsy is recommended -An outpatient follow-up was arranged with Dr. Burton for the biopsy to be performed 6. Lactic acidosis ?Sepsis ruled out this is secondary to increased work of breathing Physical Exam Narrative GENERAL: Cooperative in no distress HEENT: Atraumatic; EYES; Anicteric, Normal Conjunctiva NECK; supple, normal thyroid, RESPIRATORY: Diminished to auscultation CARDIOVASCULAR: Regular S1 S2, GI: soft, normoactive bowel sounds, : No Renal angle tenderness; EXTREMITIES: No edema, no clubbing, MUSCULOSKELETAL: no muscle waisting NEURO: Awake, no lateralizing signs SKIN: No Rash PSYCH; flat affect Weight / BMI Weight Weight: 59.6 kg Body Mass Index (BMI) 21.7 ABG / Lab / Microbiology Data Result Diagrams: 02/13/21 06:00 02/13/21 06:00 Laboratory: Laboratory Results - last 24 hr 02/13/21 06:00: WBC 10.9, RBC 4.60, Hgb 13.6, Hct 40.3, MCV 87.6, MCH 29.6, MCHC 33.7, RDW Std Deviation 42.3, RDW Coeff of Gisela 13.2, Plt Count 174, MPV 10.3, Immature Gran % (Auto) 0.300, Neut % (Auto) 79.4 H, Lymph % (Auto) 11.3 L, [place] % (Auto) 8.9, Eos % (Auto) 0.0, Baso % (Auto) 0.1, Absolute Neuts (auto) 8.7 H, Absolute Lymphs (auto) 1.23, Nucleated RBC % 0 02/13/21 06:00: Sodium 138, Potassium 3.6, Chloride 107, Carbon Dioxide 25.0, Anion Gap 6, BUN 20 H, Creatinine 0.79, Estim Creat Clear Calc 97.45, Est GFR (MDRD) Af Amer 134, Est GFR (MDRD) Non-Af 111, BUN/Creatinine Ratio 25.2 H, Glucose 91, Calcium 8.6, Total Bilirubin 0.50, AST 36, ALT 39, Alkaline Phosphatase 58, Total Protein 7.0, Albumin 3.2, Globulin 3.8, Albumin/Globulin Ratio 0.8 L Microbiology: Microbiology 02/11/21 01:00 Sputum, Induced/Lukens Gram Stain - Final 02/11/21 01:00 Sputum, Induced/Lukens Respiratory Culture - Final 02/11/21 08:35 Mucosa - Nasopharyngeal Respiratory Panel (PCR) - Final 02/10/21 21:36 Nasal Secretion SARS-CoV-2 Antigen (Rapid) - Final Radiography Diagnostic Testing: Radiology Impression Echocardiogram 02/12/21 11:13 Interpretation Summary The study was technically difficult. Left ventricular systolic function is normal. The estimated ejection fraction is 65 %. Apical false tendon noted. Trivial mitral valve insufficiency. Trivial tricuspid valve insufficiency. Unable to estimate RV systolic pressure/pulmonary artery pressure due to technically difficult study. No evidence for diastolic dysfunction. Ordering Physician: Rancho Liu Referring Physician: Tesfaye Gutierrez Performed By: Jennifer Watters, RDCS, RVT Thyroid Ultrasound 02/12/21 11:13 IMPRESSION: Enlarged thyroid gland. 6.7 cm x 4.8 cm x 3.5 cm complex cystic mass in the left lobe of the thyroid. Biopsy is recommended. Electronically Signed: Demetrio Elliott MD at 15:38 EDT , Service support , D/C Instructions Discharge Diet: No restrictions Discharge Activity: Return to Normal Activity Call your doctor if you observe: Fever of 101 or Higher, Shortness of breath, Fainting spells and Chest pain Meaningful Use Info Meaningful Use Diagnoses (Choose all that apply): VTE VTE Anticoag overlap given w/in hospital stay or rx'd at dc?: No Pt receive overlap for 5 days?: No Reason overlap not ordered, prescribed, or given for 5 days: Treatment Not Indicated Discharge Plan Admission Admit Date/Time: 02/10/21 23:22 Attending Provider: Rancho Liu Primary Care Provider: Tesfaye Gutierrez Consulting Providers: Anjum Subramanian Discharge Orders/Prescriptions Prescriptions: New prednisone 20 mg Tablet 40 mg PO DAILYCM 5 Days Qty: 10 RF: 0 levofloxacin 750 mg Tablet 750 mg PO DAILY 5 Days Qty: 5 RF: 0 Eliquis 5 mg Tablet 5 mg PO BID 30 Days Qty: 60 RF: 3 Eliquis 5 mg Tablet 10 mg PO BID 5 Days Qty: 20 RF: 0 Continued albuterol sulfate 1 PUFF inhaler 1 - 2 puff inhalation Q4H PRN PRN (Reason: Sob &/Or Wheezing) RF: 0 Referrals / Follow Up: Tesfaye Gutierrez MD [Primary Care Provider] - In 1 Week Dar Burton MD [STAFF PHYSICIAN] - Within 2 Weeks (For biopsy of a thyroid mass) Disposition Disposition (needs filled in before D/C Order can be placed): Home, Self Care Charges/Coding Visit Charges Inpatient E&M: 54332 Disch Hosp
[2021-02-13] MEDS: APIXABAN 5 MG TABLET 10 MG PO (11:15)
[2021-02-13] MEDS: levoFLOXacin 750 MG Tablet PO (11:15)
[2021-02-13] MEDS: Famotidine 20 MG Tablet PO (11:15)
--- NOTE | 2021-02-13 11:40 | CASEMGMT ---
Pt to be sent home on Eliquis at d/c and med e-scribed to [facility] per pt request. Call to [facility] and per tech, they do not have pt's insurance card on file. Pt updated that he will need to provide card to them and pt also provided Eliquis 30 day free trial card and co-pay card with instructions. Pt voices no further questions/concerns/needs with discharging today. Max SAM CM
--- NOTE | 2021-02-13 12:25 | CASEMGMT ---
Pt is leaving, is getting wheeled down to the lobby now to go home, his ride is waiting for him. SW gave pt number to call the SW department to call and set up at time to complete LW/POA papers. Pt did not remember initially SW speaking w/him yesterday about completing the paperwork, SW reminded pt of the conversation and then he remembered, states understanding. DAYNA Marks
--- NOTE | 2021-02-13 12:29 | PHA.DC.MR ---
Pharmacy Service has performed discharge medication reconciliation for this patient. The patient's discharge medication list was reviewed for discrepancies and discrepancies were resolved. Medication education papers prepared but patient was already discharged when I attempted to health counselor. Home Medications albuterol sulfate 1 - 2 puff INHALATION Q4H PRN PRN 03/22/19 apixaban [Eliquis] 5 mg PO BID 30 Days #60 tab 02/13/21 apixaban [Eliquis] 10 mg PO BID 5 Days #20 tab 02/13/21 levofloxacin 750 mg PO DAILY 5 Days #5 tab 02/13/21 prednisone 40 mg PO DAILYCM 5 Days #10 tab 02/13/21
== END 2021-02-13 12:24 | disposition home or self-care (01) | DRG 208 ==
LOC: ED 23:21 → ICU 02-11 00:05 → PCU 02-13 10:59 → ICU 02-19 15:02 → PCU 02-19 15:02
PROVIDERS: Admitting Provider Hospitalist; Emergency Provider Emergency Medicine; PCP Family Medicine; Visit Provider Internal Medicine
DX: J45.902 Unspecified asthma with status asthmaticus (principal); I46.9 Cardiac arrest, cause unspecified; J96.01 Acute respiratory failure with hypoxia; J96.02 Acute respiratory failure with hypercapnia; I26.99 Other pulmonary embolism without acute cor pulmonale; E87.2 Acidosis; D68.59 Other primary thrombophilia; U09.9 Post COVID-19 condition, unspecified; F17.210 Nicotine dependence, cigarettes, uncomplicated; I48.91 Unspecified atrial fibrillation; Z87.01 Personal history of pneumonia (recurrent); E04.1 Nontoxic single thyroid nodule
CPT/HCPCS: 31500; 31720; 36415; 36600; 51702; 71045; 71275; 76536; 80048; 80053; 80076; 80307; 82077; 82550; 82803; 83605; 83735; 84100; 84443; 84478; 84484; 85025; 85610; 85730; 87070; 87205; 87426; 87633; 87635; 93005; 93306; 94002; 94003; 94640; 94660; 97162; 97802; 97803; 99251; 99285; J7030; Q9967; U0005; A4216; G0463; J2405; J3010; U0003

== ENCOUNTER 2021-05-31 02:02 | Emergency (ER) | payer OTHER, SELFPAY ==
[2021-05-31] VITALS (7 sets, daily range): BP systolic 120–150; BP diastolic 71–91; PULSE 79–110; RESP 16–24; TEMP 36.1; O2SAT 95–97; BMI 22.1
--- NOTE | 2021-05-31 02:08 | CT_ITS ---
STUDY: CTA CHEST REASON FOR EXAM: Male, 45 years old. PE RADIATION DOSAGE (If Supplied By Facility): CTDIvol = ( 8.91 ) mGy, DLP = ( 349.75 ) mGycm TECHNIQUE: The examination was performed with the intravenous administration of IV 100mL Isovue-370. Post-processing of the angiographic images was performed, with multiplanar reformation and 3D reconstruction. Individualized dose optimization techniques were used for this CT. COMPARISON: February 11, 2021 CT angiogram chest, ultrasound report described inhomogeneous mass for which a biopsy was recommended in February 2021. FINDINGS: There is a large abnormal in a inhomogeneous partly cystic partly solid left thyroid mass. This measures 8.5 x 4.5 x 6.4 cm. The mass extends down into the left side of the mediastinum. The mass narrows the trachea and deviates it towards the right. Normal enhancement of the main pulmonary artery and right and left pulmonary arteries. Normal enhancement of the bilateral peripheral pulmonary arteries. There is no demonstrated pulmonary embolism. The ascending thoracic aorta measures 3.8 x 3.4 cm stable since prior study. There is no demonstrated aortic dissection. There is mild cardiac enlargement. There is distended appearance of the left ventricle similar to the prior study. There is a large thyroid mass extending down into the left side of the mediastinum. Normal hilar regions. Normal visualized trachea and bronchi. There is a pattern of hyperinflation of the lungs. There is no visualized focal consolidation or pleural effusion. There is a left upper lobe stable nodule measuring 6.4 mm and 3.2 mm. There is a nonspecific 2 mm density at the right minor fissure. Normal pleura. Normal chest wall structures. The bones are inhomogeneous. There are Schmorl''s nodes demonstrated. There is mild splenomegaly. CT/CTA Chest W/WO Contrast IMPRESSION: Abnormal inhomogeneous partly cystic partly solid dominant thyroid mass extending into the mediastinum. This was also seen on prior study. An ultrasound report described inhomogeneous mass which a biopsy is recommended. Recommend correlation with any biopsy history. A dominant unilateral mass in the thyroid is should be considered suspicious, particularly in this age group. There is deviation of the trachea towards the right and mild narrowing. Nonspecific hyperinflation of the lungs without focal infiltrate. Over there are 2 stable left apical nodules measuring 6.4-3.2 mm. Follow-up is warranted in at least 6 months depending on the pathology of the thyroid. No pulmonary embolism. Splenomegaly. Electronically Signed: Haley Cardenas MD at 3:50 EST ,
--- NOTE | 2021-05-31 02:08 | EKG12_ITS ---
Test Reason : SOB Blood Pressure : / mmHG Vent. Rate : 089 BPM Atrial Rate : 089 BPM P-R Int : 156 ms QRS Dur : 100 ms QT Int : 360 ms P-R-T Axes : 083 255 078 degrees QTc Int : 438 ms Normal sinus rhythm Normal ECG Confirmed by CHAUNCEY GRIFFITH, LEYDI ([id number]), order editor GUILLERMO HESS ([id number]) on 06/03/2021 1:14:18 PM Referred By: JARRELL Confirmed By:TETO GROSSMAN MD
[2021-05-31 02:19] LABS: Absolute Neutrophil Count 4.8 X10^3/uL (2.0-7.7); Basophil# 0.02 X10^3/uL; Basophil% 0.2 % (0-1); Eosinophil# 0.32 X10^3/uL; Eosinophils% 3.6 % (0-5); Hemoglobin 15.5 g/dL (13.0-16.5); Lymphocyte % 31.9 % (19-41); Mean Corp Hgb Conc 35.2 g/dL (32-36); Mean Platelet Vol. 9.6 fl (6.2-12.0); Monocyte# 0.78 X10^3/uL; Monocyte% 8.9 % (0-10); NRBC Flagged by Analyzer 0 % (0-5); Neutrophil # 4.83 X10^3/uL (2.7-7.7); Neutrophil % 54.9 % (47-70); Platelet Count 221 K/mm3 (150-450); RBC Distribution Width CV 12.3 % (11.6-14.6); RBC Distribution Width SD 39.9 fl (35.1-43.9); White Blood Count 8.8 K/mm3 (4.4-11.0)
[2021-05-31] MEDS: MethylPREDNISolone 125 MG/2 ML Vial IV (02:23)
--- NOTE | 2021-05-31 02:30 | EX.ED.DYSGE1 ---
HPI History of Present Illness Chief Complaint: Asthma Informant: patient Onset/Context/Timing Onset: Yesterday Current Severity: Moderate Maximum Severity: Moderate Narrative Narrative: Patient present secondary to asthma attack. He states he started having more trouble breathing and wheezing last evening. He had a similar episode 2 days ago but was able to use his nebulizer. He denies chest pain or fever. Patient did have a cardiopulmonary arrest after asthma attack in February. At that time was found to have large PE. He states he has not taken his Eliquis for the past week or so because he cannot afford it. [facility] Medical History Asthma Pulmonary embolism Home Medications albuterol sulfate 1 - 2 puff INHALATION Q4H PRN PRN 03/22/19 [History Last Taken Unknown] aspirin [Baby Aspirin] 81 mg PO DAILY 05/31/21 [History Last Taken Unknown] prednisone See Taper PO DAILY #63 tab 05/31/21 [Rx Last Taken Unknown] Allergy/AdvReac Type Severity Reaction Status Date / Time cat dander Allergy Itching Verified 02/10/21 21:36 Family History unable to obtain Social History Smoking Status: Current every day smoker tobacco type: cigarettes ROS ROS ED Constitutional Constitutional ED: Denies chills or fever(s) Eyes Eyes: Denies change in vision ENT ENT ED: Denies sore throat Respiratory/Chest Respiratory/Chest: Reports dyspnea; Denies cough Gastrointestinal Gastrointestinal: Denies abdominal pain, nausea or vomiting Musculoskeletal Musculoskeletal: Denies back pain or neck pain Integumentary Denies rash Neurologic Neurologic: Denies headache(s) or weakness Psychiatric Psychiatric: Denies anxiety or depression Allergic/Immunologic Allergic/Immunologic ED: Denies urticaria EXAM Physical Exam Const Vital Signs: 05/31/21 02:03 05/31/21 02:06 05/31/21 02:08 Temperature 96.9 F L 96.9 F L Temperature Source Temporal Temporal Pulse Rate 110 H 110 H Respiratory Rate 24 H 24 H Respiratory Effort Short of Breath Labored Blood Pressure 150/91 H 150/91 H Blood Pressure Mean 110 110 Pulse Ox 97 97 Oxygen Delivery Method Room Air Room Air 05/31/21 02:38 05/31/21 02:48 05/31/21 04:27 Temperature Temperature Source Pulse Rate 79 97 94 Respiratory Rate 20 H 16 17 Respiratory Effort Blood Pressure Blood Pressure Mean Pulse Ox 97 Oxygen Delivery Method Room Air 05/31/21 05:35 Temperature Temperature Source Pulse Rate 89 Respiratory Rate 16 Respiratory Effort Blood Pressure Blood Pressure Mean Pulse Ox Oxygen Delivery Method Positive well nourished and well developed General Appearance ED: well developed HEENT Reports moist mucous membranes Eyes PERRL and EOMs intact bilaterally Neck supple Chest Wall inspection of chest normal and palpation of chest normal Resp Resp Narrative: Tight wheezes bilaterally. Patient able to speak in 5-6 word sentences. Auscultation: wheezes Cardio Rate: tachycardic GI non-tender Palpation: soft Extremity normal to inspection Neuro oriented x3 Sensorium / Orientation: alert Psych mental status grossly normal Skin no rashes or lesions noted MDM MDM MDM Narrative Medical decision making narrative: EKG, lab work, CTA chest obtained. Patient given Solu-Medrol and DuoNeb followed by albuterol treatments. Lab Data Attestation: I reviewed the patient's lab results. Labs: Laboratory Results - last 24 hr 05/31/21 05/31/21 02:15 02:15 WBC 8.8 RBC 5.00 Hgb 15.5 Hct 44.0 MCV 88.0 MCH 31.0 MCHC 35.2 RDW Std Deviation 39.9 RDW Coeff of Gisela 12.3 Plt Count 221 MPV 9.6 Immature Gran % (Auto) 0.500 Neut % (Auto) 54.9 Lymph % (Auto) 31.9 [place] % (Auto) 8.9 Eos % (Auto) 3.6 Baso % (Auto) 0.2 Absolute Neuts (auto) 4.8 Absolute Lymphs (auto) 2.80 Nucleated RBC % 0 Sodium 139 Potassium 3.5 Chloride 109 H Carbon Dioxide 25.0 Anion Gap 5 BUN 18 Creatinine 1.06 Estim Creat Clear Calc 77.99 Est GFR (MDRD) Af Amer 96 Est GFR (MDRD) Non-Af 79 BUN/Creatinine Ratio 17.0 Glucose 120 H Calcium 8.4 L Troponin I High Sens < 3 L Radiography Diagnostic Testing: Clinical Impression(s) from Imaging Studies Chest CTA 05/31/21 02:08 IMPRESSION: Abnormal inhomogeneous partly cystic partly solid dominant thyroid mass extending into the mediastinum. This was also seen on prior study. An ultrasound report described inhomogeneous mass which a biopsy is recommended. Recommend correlation with any biopsy history. A dominant unilateral mass in the thyroid is should be considered suspicious, particularly in this age group. There is deviation of the trachea towards the right and mild narrowing. Nonspecific hyperinflation of the lungs without focal infiltrate. Over there are 2 stable left apical nodules measuring 6.4-3.2 mm. Follow-up is warranted in at least 6 months depending on the pathology of the thyroid. No pulmonary embolism. Splenomegaly. Electronically Signed: Haley Cardenas MD at 3:50 EST , EKG Initial EKG: Attestation: I personally reviewed and interpreted this EKG as follows: Interpretation: Sinus Rhythm (Sinus at 89 with no acute ischemia.) Treatment and Re-Evaluation Comments:: After initial round of aerosols patient significantly improved. Lungs are still diminished at the bilateral bases. Lab work reviewed and unremarkable. CTA of the chest reveals thyroid mass that has been noted on previous studies. No evidence of pulmonary embolism or infiltrate. Patient does report that he had the thyroid mass biopsied at [facility] and they are following this. Patient was given one additional DuoNeb treatment and at this time lung sounds are clear with good air movement throughout. Patient will be discharged with a prescription for prednisone. He has had albuterol inhaler to use. Return instructions provided. Discharge Plan Triage Chief Complaint: Asthma ED Provider: Nabila Velazco Dx/Rx/DC Orders Clinical Impression: Asthma exacerbation Instructions: ED Asthma, Acute (Adult) Prescriptions: New prednisone 10 mg tablet See Taper mg PO DAILY Qty: 63 RF: 0 No Action albuterol sulfate 1 PUFF inhaler 1 - 2 puff inhalation Q4H PRN PRN (Reason: Sob &/Or Wheezing) RF: 0 aspirin [Baby Aspirin] 81 mg Tablet,Chewable 81 mg PO DAILY RF: 0 Primary Care Provider: Tesfaye Gutierrez Referrals: Tesfaye Gutierrez MD [Primary Care Provider] - 1 Week if not improving Disposition Disposition: Home, Self Care
[2021-05-31 02:38] LABS: Anion Gap 5 (5-15); BUN 18 mg/dL (7-18); Calcium,Total 8.4 mg/dL (8.5-10.1); Chloride 109 mmol/L (98-107); Creatinine, Serum 1.06 mg/dL (0.70-1.30); EST Glomerular Filtration Rate 79 mL/min (>60); Est Glom Filt Rate - Afr Amer 96 mL/min (>60); Estimated Creatinine Clearance 77.99 ml/min; Glucose 120 mg/dL (74-106); Potassium 3.5 mmol/L (3.5-5.1); Sodium Level 139 mmol/L (136-145); Troponin-I HS < 3 pg/mL (3.0-78.0)
[2021-05-31] MEDS: Ipratropium/Albuterol Sulfate 3 ML AMPUL.NEB INHALATION ×2 (02:42→05:34)
[2021-05-31] MEDS: Albuterol 2.5 MG/3 ML VIAL.NEB. INHALATION ×2 (02:42→02:43)
== END 2021-05-31 06:19 | disposition home or self-care (01) ==
PROVIDERS: Emergency Provider Emergency Medicine; PCP Family Medicine; Visit Provider Emergency Medicine
DX: J45.901 Unspecified asthma with (acute) exacerbation (principal); F17.210 Nicotine dependence, cigarettes, uncomplicated; Z79.899 Other long term (current) drug therapy; Z79.82 Long term (current) use of aspirin
CPT/HCPCS: 71275; 80048; 84484; 85025; 93005; 94640; 96374; 99284; Q9967; A4216

== ENCOUNTER 2022-12-01 14:42 | Emergency (ER) | payer OTHER, SELFPAY ==
[2022-12-01 14:44] VITALS: BP 133/93; PULSE 84; RESP 18; TEMP 36.6; O2SAT 100; BMI 20.2
--- NOTE | 2022-12-01 15:39 | ED.VIS.GI ---
HPI HPI - GI History of Present Illness Chief Complaint: Nausea/Vomiting/Diarrhea Narrative Narrative: 47-year-old male presenting with nausea/vomiting/diarrhea. Patient states it started really overnight. He states he had not had any diet changes over the weekend except for the fact he ate cereal all weekend. He does not have any sick contacts. He states he had chills and sweats but has not had any fever that he knows of because he has not checked his temperature. Patient states he has vomited about 12 times. He is at about the same amount of episodes of diarrhea. He notes today he had some small amount of blood in his stool. He has diffuse abdominal cramping. Denies any significant medical history. Denies allergies to medications. No intra-abdominal surgeries previously. No recent antibiotic use. Patient states he had not been drinking alcohol over the weekend. Denies drug use. PFSH PFS Medical History Asthma Pulmonary embolism Home Medications albuterol sulfate 90 mcg/actuation aerosol inhaler 1 - 2 puff inhalation Q4H PRN PRN Sob &/Or Wheezing 03/22/19 [History Last Taken Unknown] aspirin 81 mg chewable tablet 81 mg PO DAILY 05/31/21 [History Last Taken Unknown] prednisone 10 mg tablet See Taper PO DAILY #63 tabs 05/31/21 [Rx Last Taken Unknown] ondansetron 4 mg disintegrating tablet 4 mg PO Q8H PRN PRN Nausea #14 tabs 12/01/22 [Rx Last Taken Unknown] Allergy/AdvReac Type Severity Reaction Status Date / Time cat dander Allergy Itching Verified 12/01/22 14:44 Social History Smoking Status: Current every day smoker tobacco type: cigarettes ROS ROS ED Constitutional Constitutional ED: Reports chills, subjective and sweats; Denies fever(s) Eyes Eyes: Denies blurry vision or change in vision ENT ENT ED: Denies ear pain or sore throat Cardiovascular Cardiovascular: Denies chest pain, palpitations or racing heartbeat Respiratory/Chest Respiratory/Chest: Denies cough, dyspnea or sputum Gastrointestinal Gastrointestinal: Reports abdominal pain, diarrhea, nausea, vomiting and other Details: Small no blood in stool. ; Denies constipation Genitourinary Genitourinary ED: Denies dysuria, hematuria or urinary frequency Musculoskeletal Musculoskeletal: Reports myalgias; Denies arthralgias or neck pain Integumentary Denies abscess, Abrasions or rash Neurologic Neurologic: Reports headache(s); Denies paresthesias or weakness Psychiatric Psychiatric: Denies anxiety, depression, suicidal ideation or suicidal thoughts Endocrine Endocrinology: Denies polydipsia or polyuria EXAM Physical Exam Const Vital Signs: 12/01/22 14:44 Temperature 97.8 F Temperature Source Temporal Pulse Rate 84 Respiratory Rate 18 Blood Pressure 133/93 H Blood Pressure Mean 106 Pulse Ox 100 Oxygen Delivery Method Room Air Positive well nourished General Appearance ED: NAD; Negative for pallor HEENT normocephalic and atraumatic Eyes PERRL Resp normal respiratory effort and clear to auscultation bilaterally Cardio regular rate and regular rhythm GI non-tender and non-distended Auscultation: normoactive bowel sounds Back/Spine no CVA tenderness Neuro CN's II-XII intact bilaterally, moves all extremities and no sensory deficits noted Sensorium / Orientation: alert Motor Exam: strength 5/5 throughout Psych mental status grossly normal and thought process normal Skin no wounds General Skin Exam: Negative for jaundice or pallor MDM MDM MDM Narrative Medical decision making narrative: Patient presenting with nausea, vomiting, diarrhea over the last 24 hours. He denies fevers because he has not checked but does have chills and body aches. Patient states he had a small amount of blood in the stool earlier today. No black or bloody emesis. Differential includes gastritis, gastroenteritis, colitis, COVID-19, UTI, electrolyte abnormalities, anemia, UTI, pyelonephritis. Patient medicated with morphine, Zofran, 1 L of normal. CBC will be obtained to assess white blood cell count and hemoglobin. CMP will be obtained to assess liver function, renal function, electrolytes. Lipase to assess for pancreatitis. Urinalysis to assess for UTI. CBC shows a leukocytosis of 12.5. Hemoglobin hematocrit are stable. Platelets are normal. Renal function electrolytes within normal limits. LFTs are all normal. Urinalysis negative for infection. After being treated with morphine, Zofran, normal saline he is feeling much better. Discussed his normal lab work-up. COVID and flu were also negative. Patient will be given Zofran for home and he is given return precautions. He is counseled to drink plenty of fluids. Impression: 1. Nausea/vomiting 2. Abdominal pain Lab Data Attestation: I reviewed the patient's lab results. Labs: Laboratory Results - last 24 hr 12/01/22 12/01/22 15:20 17:00 WBC 12.5 H RBC 5.08 Hgb 15.2 Hct 45.4 MCV 89.4 MCH 29.9 MCHC 33.5 RDW Std Deviation 41.0 RDW Coeff of Gisela 12.4 Plt Count 205 MPV 10.0 Immature Gran % (Auto) 0.400 Neut % (Auto) 88.0 H Lymph % (Auto) 7.6 L [place] % (Auto) 3.7 Eos % (Auto) 0.2 Baso % (Auto) 0.1 Absolute Neuts (auto) 11.0 H Absolute Lymphs (auto) 0.95 Nucleated RBC % 0 Sodium 140 Potassium 3.8 Chloride 109 H Carbon Dioxide 27.0 Anion Gap 4 L BUN 16 Creatinine 0.78 Estim Creat Clear Calc 95.11 Est GFR (MDRD) Af Amer 136 Est GFR (MDRD) Non-Af 112 BUN/Creatinine Ratio 20.5 H Glucose 114 H Calcium 8.7 Total Bilirubin 0.60 AST 14 L ALT 25 Alkaline Phosphatase 65 Total Protein 7.6 Albumin 3.9 Globulin 3.7 Albumin/Globulin Ratio 1.1 Lipase 23 Urine Color Yellow Urine Clarity Clear Urine pH 6.0 Ur Specific [place] 1.020 Urine Protein 30 H Urine Glucose (UA) Normal Urine Ketones 150 A* Urine Occult Blood 10 H Urine Nitrite Negative Urine Bilirubin Negative Urine Urobilinogen Normal Ur Leukocyte Esterase 25 H Urine RBC 0 SEEN Urine WBC 0-5 SEEN Ur Squamous Epith Cells 0 SEEN Urine Bacteria 0 SEEN Urine Mucus 0 SEEN Discharge Plan Triage Chief Complaint: Nausea/Vomiting/Diarrhea ED Provider: Isael Graff Dx/Rx/DC Orders Instructions: ED Gastroenteritis, Viral (Adult) Prescriptions: New ondansetron 4 mg tablet,disintegrating 4 mg PO Q8H PRN PRN (Reason: Nausea) Qty: 14 0RF No Action albuterol sulfate 1 PUFF inhaler 1 - 2 puff inhalation Q4H PRN PRN (Reason: Sob &/Or Wheezing) aspirin [Baby Aspirin] 81 mg Tablet,Chewable 81 mg PO DAILY prednisone 10 mg tablet See Taper PO DAILY Qty: 63 0RF Taper: Prednisone Taper 60 mg WITH BREAKFAST for 3 Days and 0 Hour 50 mg WITH BREAKFAST for 3 Days and 0 Hour 40 mg WITH BREAKFAST for 3 Days and 0 Hour 30 mg WITH BREAKFAST for 3 Days and 0 Hour 20 mg WITH BREAKFAST for 3 Days and 0 Hour 10 mg WITH BREAKFAST for 3 Days and 0 Hour Stand Alone Forms: ED Work / School Excuse Primary Care Provider: Tesfaye Gutierrez Referrals: Tesfaye Gutierrez MD [Primary Care Provider] - Disposition Disposition: Home, Self Care Discharge Date/Time: 12/01/22 18:21
[2022-12-01] MEDS: Morphine 4 MG/ML Syringe IV (15:51)
[2022-12-01] MEDS: Ondansetron 4 MG/2 ML Vial IV (15:51)
[2022-12-01] MEDS: 0.9% Normal Saline 1,000 ML 1000 ML IV (15:51)
[2022-12-01 15:57] LABS: Absolute Lymphocyte Count 0.95 X10^3/uL (0.83-4.51); Basophil# 0.01 X10^3/uL; Basophil% 0.1 % (0-1); Eosinophil# 0.03 X10^3/uL; Eosinophils% 0.2 % (0-5); Hematocrit 45.4 % (40-54); Hemoglobin 15.2 g/dL (13.0-16.5); Lymphocyte # 0.95 X10^3/ul (0.83-4.51); Lymphocyte % 7.6 % (19-41); Mean Corp Hgb Conc 33.5 g/dL (32-36); Mean Corpuscular Hgb 29.9 pg (27.0-32.0); Mean Corpuscular Volume 89.4 fL (80-94); Monocyte# 0.46 X10^3/uL; Monocyte% 3.7 % (0-10); NRBC Flagged by Analyzer 0 % (0-5); Neutrophil # 10.95 X10^3/uL (2.7-7.7); Platelet Count 205 K/mm3 (150-450); RBC Distribution Width CV 12.4 % (11.6-14.6); Red Blood Count 5.08 M/mm3 (4.6-6.2); White Blood Count 12.5 K/mm3 (4.4-11.0)
[2022-12-01 16:19] LABS: ALB/GLOB Ratio 1.1 RATIO (0.9-2.4); AST(SGOT) 14 U/L (15-37); Alanine Aminotransfer ALT/SGPT 25 U/L (16-61); Albumin, Serum 3.9 g/dL (3.2-5.0); Alkaline Phosphatase 65 U/L (45-117); Anion Gap 4 (5-15); BUN 16 mg/dL (7-18); BUN/Creat Ratio 20.5 RATIO (10-20); Calcium,Total 8.7 mg/dL (8.5-10.1); Chloride 109 mmol/L (98-107); Creatinine, Serum 0.78 mg/dL (0.70-1.30); EST Glomerular Filtration Rate 112 mL/min (>60); Est Glom Filt Rate - Afr Amer 136 mL/min (>60); Estimated Creatinine Clearance 95.11 ml/min; Globulin 3.7 g/dL (2.2-4.2); Glucose 114 mg/dL (74-106); Lipase 23 U/L (13-75); Potassium 3.8 mmol/L (3.5-5.1); Protein, Total 7.6 g/dL (6.4-8.2); Sodium Level 140 mmol/L (136-145)
[2022-12-01 17:10] LABS: Bacteria 0 SEEN /hpf (None Seen); Mucous, Urine 0 SEEN /hpf (<or=2+); Red Blood Cells-Urine 0 SEEN /hpf (0-5); Squamous Epithelial Cells - UA 0 SEEN /hpf (0-5)
[2022-12-01 17:12] LABS: Color, Urine Yellow (Yellow); Glucose, Dipstick Normal (Normal); Leukocyte Esterase-Dipstick 25 /ul (Negative); Nitrite-Dipstick Negative (Negative); Occult Blood-Urine 10 /ul (Negative); Protein-Dipstick 30 mg/dl (Negative); Urine Bilirubin Dipstick Negative (Negative); Urine Clarity Clear (Clear); Urine Urobilinogen Normal (Normal)
[2022-12-01 17:16] LABS: Ketone-Dipstick 150 mg/dl (Negative)
[2022-12-01 17:35] LABS: White Blood Cells 0-5 SEEN /hpf (0-5)
--- NOTE | 2022-12-01 17:59 | ED.RN ---
called lab about covid/flu results- backed up and unable to run at this time.
== END 2022-12-01 18:21 | disposition home or self-care (01) ==
PROVIDERS: Emergency Provider Student in an Organized Health Care Education/Training Program; PCP Family Medicine; Visit Provider Student in an Organized Health Care Education/Training Program
DX: R11.2 Nausea with vomiting, unspecified (principal); R10.9 Unspecified abdominal pain; R19.7 Diarrhea, unspecified; F17.210 Nicotine dependence, cigarettes, uncomplicated; Z86.711 Personal history of pulmonary embolism
CPT/HCPCS: 80053; 81001; 83690; 85025; 87428; 96361; 96374; 96375; 99283; J7030; A4216; J2405